=== PATIENT | female | born 1975 | race African-American/Black ===

== ENCOUNTER → 2020-08-30 08:22 | Outpatient (BNVA) | payer MEDICARE, MEDICAID, SELFPAY | PROVIDERS: Visit Provider Obstetrics & Gynecology | DX: N93.9 Abnormal uterine and vaginal bleeding, unspecified (principal) | CPT/HCPCS: 99212 ==

== ENCOUNTER → 2020-09-15 10:34 | Outpatient (BNVA) | payer MEDICARE, MEDICAID, SELFPAY | PROVIDERS: Visit Provider Obstetrics & Gynecology | DX: Z76.89 Persons encountering health services in other specified circumstances (principal) ==

== ENCOUNTER → 2020-11-17 15:39 | Outpatient (BNVA) | payer OTHER, SELFPAY | PROVIDERS: PCP Internal Medicine; Visit Provider Obstetrics & Gynecology | DX: N93.9 Abnormal uterine and vaginal bleeding, unspecified (principal) | CPT/HCPCS: Q3014 ==

== ENCOUNTER 2020-11-18 06:03 | Day surgery (SDC) | payer OTHER, SELFPAY ==
[2020-09-24 14:43] VITALS: BMI 41.6
--- NOTE | 2020-09-29 11:01 | HO.ANESPROP2 ---
HPI - Anesthesia Eval Consult details Narrative: 44yo F for D&C Diagnostic Hysteroscopy with Novasure Ablation PMFSH Past Medical History Medical History Bronchitis Chronic GERD COPD (chronic obstructive pulmonary disease) Herpes simplex antibody positive Hx of kidney disease Family History Family History Father No problems noted. Mother HTN (hypertension) Asthma Diabetes mellitus Brother No problems noted. Brother No problems noted. Son No problems noted. Daughter No problems noted. Daughter No problems noted. Daughter No problems noted. Surgical History Surgical History Hx of section Hx of cholecystectomy Hx of foot surgery Social History Social History Alcohol intake: never Smoking Status: Current every day smoker Tobacco Type: Cigarette Cigarettes Per Day: 6 Years Smoked: 30+ Second Hand Smoke Exposure: No Meds Allergies Allergy/AdvReac Type Severity Reaction Status Date / Time acetaminophen [Tylenol] AdvReac Unknown kidney Verified 09/15/20 10:32 problems Home Medications Medication Instructions Recorded Confirmed Type albuterol sulfate 2.5 mg INHALATION Q6H PRN 08/06/20 09/24/20 History albuterol sulfate 90 mcg/actuation 2 puff INHALATION Q4-6H PRN 08/06/20 09/24/20 History aerosol inhaler metformin 500 mg tablet 500 mg PO BID 08/06/20 09/24/20 History quetiapine 100 mg tablet 100 mg PO DAILY 08/06/20 09/24/20 History quetiapine 300 mg tablet,extended 300 mg PO BEDTIME 08/06/20 09/24/20 History release 24 hr sennosides 8.6 mg tablet 17.2 mg PO BEDTIME PRN 08/06/20 09/24/20 History fluticasone propion-salmeterol 1 puff PO BID 09/24/20 09/24/20 History [Advair Diskus] pantoprazole 40 mg PO DAILY PRN 09/24/20 09/24/20 History Exam Exam Date and Time: September 29, 2020 1101 Height,Weight and Vital Signs: Height 5 ft 6 in Weight 117.027 kg Assessment and Plan Assessment Anesthesia Assessment: Chart Reviewed
[2020-10-29 12:31] VITALS: BMI 41.6
--- NOTE | 2020-11-03 09:38 | P.CONAN_ITS ---
HPI - Anesthesia Eval Consult details Narrative: 44yo F for D&C Hysteroscopy with Novasure ablation Resched to 11/18/20 [facility] Past Medical History Medical History Bronchitis Chronic GERD COPD (chronic obstructive pulmonary disease) Herpes simplex antibody positive Hx of kidney disease Family History Family History Father No problems noted. Mother HTN (hypertension) Asthma Diabetes mellitus Brother No problems noted. Brother No problems noted. Son No problems noted. Daughter No problems noted. Daughter No problems noted. Daughter No problems noted. Surgical History Surgical History Hx of section Hx of cholecystectomy Hx of foot surgery Social History Social History Alcohol intake: never Smoking Status: Current every day smoker Tobacco Type: Cigarette Cigarettes Per Day: 4 Years Smoked: 30+ Second Hand Smoke Exposure: No Meds Allergies Allergy/AdvReac Type Severity Reaction Status Date / Time acetaminophen [Tylenol] AdvReac Unknown kidney Verified 10/29/20 12:31 problems Home Medications Medication Instructions Recorded Confirmed Type quetiapine 100 mg tablet 100 mg PO DAILY 08/06/20 09/24/20 History quetiapine 300 mg tablet,extended 300 mg PO BEDTIME 08/06/20 09/24/20 History release 24 hr sennosides 8.6 mg tablet 17.2 mg PO BEDTIME PRN 08/06/20 09/24/20 History fluticasone propion-salmeterol 1 puff PO BID 09/24/20 09/24/20 History [Advair Diskus] pantoprazole 40 mg PO DAILY PRN 09/24/20 09/24/20 History Exam Exam Date and Time: November 03, 2020 0938 Height,Weight and Vital Signs: Height 5 ft 6 in Weight 117 kg Pertinent Lab Results Pertinent Lab Results: Laboratory Tests 12/26/19 06/29/20 14:15 13:46 WBC 5.4 Hgb 12.9 Hct 40.5 Plt Count 348 Sodium 138 Potassium 5.1 Chloride 106 BUN 8 L Creatinine 0.81 Assessment and Plan Assessment Anesthesia Assessment: Chart Reviewed
[2020-11-10 20:08] VITALS: BMI 40.3
--- NOTE | 2020-11-17 09:18 | P.CONAN_ITS ---
Documented by User: Mariana Childress 11/17/20 09:19 HPI - Anesthesia Eval Consult details Narrative: 44yo F for D&C Hysteroscopy with Novasure ablation PMFSH Past Medical History Medical History Anxiety Bronchitis Chronic GERD COPD (chronic obstructive pulmonary disease) Depression Diabetes type 2, controlled Herpes simplex antibody positive Hx of kidney disease Schizophrenia Family History Family History Father No problems noted. Mother HTN (hypertension) Asthma Diabetes mellitus Brother No problems noted. Brother No problems noted. Son No problems noted. Daughter No problems noted. Daughter No problems noted. Daughter No problems noted. Surgical History Surgical History Hx of section Hx of cholecystectomy Hx of foot surgery Social History Social History Are you a primary childcare provider to a significant other at home: No Do you presently have visiting nurse or other home services: No Alcohol intake: never Smoking Status: Current every day smoker Tobacco Type: Cigarette Cigarettes Per Day: 4 Years Smoked: 30+ Smoked in Last 30 Days: Yes Patient Interested in Nicotine Replacement: No Patient Given Instructions on How to Stop Smoking: No Date Education Initiated: 10/29/20 Second Hand Smoke Exposure: No Use of substances other than those prescribed or required for medical reasons: Yes Substance Use Frequency: Weekly Have you been hit, kicked, punched, or otherwise hurt by someone within the past year? If so, by whom?: No Advance Directives: No Advance Directives Information Provided: No Advance Directives on File: No Recently lost weight without trying: No Meds Allergies Allergy/AdvReac Type Severity Reaction Status Date / Time acetaminophen [Tylenol] AdvReac Unknown kidney Verified 11/10/20 20:15 problems Home Medications Medication Instructions Recorded Confirmed Type quetiapine 100 mg tablet 100 mg PO DAILY 08/06/20 11/10/20 History quetiapine 300 mg tablet,extended 300 mg PO BEDTIME 08/06/20 11/10/20 History release 24 hr sennosides 8.6 mg tablet 17.2 mg PO BEDTIME PRN 08/06/20 11/10/20 History fluticasone propion-salmeterol 1 puff PO BID 09/24/20 11/10/20 History [Advair Diskus] pantoprazole 40 mg PO DAILY PRN 09/24/20 11/10/20 History dextroamphetamine-amphetamine 30 mg PO DAILY 11/10/20 11/10/20 History [Adderall XR] Exam Exam Date and Time: November 17, 2020 0918 Height,Weight and Vital Signs: Height 5 ft 6 in Weight 113.398 kg Assessment and Plan Assessment Anesthesia Assessment: Chart Reviewed Documented by User: Susy Santos 11/18/20 07:22 PMFSH Past Medical History Medical History Anxiety Bronchitis Chronic GERD COPD (chronic obstructive pulmonary disease) Depression Diabetes type 2, controlled Herpes simplex antibody positive Hx of kidney disease Schizophrenia Family History Family History Father No problems noted. Mother HTN (hypertension) Asthma Diabetes mellitus Brother No problems noted. Brother No problems noted. Son No problems noted. Daughter No problems noted. Daughter No problems noted. Daughter No problems noted. Surgical History Surgical History Hx of section Hx of cholecystectomy Hx of foot surgery Social History Social History Are you a primary childcare provider to a significant other at home: No Do you presently have visiting nurse or other home services: No Alcohol intake: never Smoking Status: Current every day smoker Tobacco Type: Cigarette Cigarettes Per Day: 4 Years Smoked: 30+ Smoked in Last 30 Days: Yes Patient Interested in Nicotine Replacement: No Patient Given Instructions on How to Stop Smoking: No Date Education Initiated: 10/29/20 Second Hand Smoke Exposure: No Use of substances other than those prescribed or required for medical reasons: Yes Substance Use Frequency: Weekly Have you been hit, kicked, punched, or otherwise hurt by someone within the past year? If so, by whom?: No Advance Directives: No Advance Directives Information Provided: No Advance Directives on File: No Recently lost weight without trying: No Meds Allergies Allergy/AdvReac Type Severity Reaction Status Date / Time acetaminophen [Tylenol] AdvReac Unknown kidney Verified 11/10/20 20:15 problems Home Medications Medication Instructions Recorded Confirmed Type quetiapine 100 mg tablet 100 mg PO DAILY 08/06/20 11/10/20 History quetiapine 300 mg tablet,extended 300 mg PO BEDTIME 08/06/20 11/10/20 History release 24 hr sennosides 8.6 mg tablet 17.2 mg PO BEDTIME PRN 08/06/20 11/10/20 History fluticasone propion-salmeterol 1 puff PO BID 09/24/20 11/10/20 History [Advair Diskus] pantoprazole 40 mg PO DAILY PRN 09/24/20 11/10/20 History dextroamphetamine-amphetamine 30 mg PO DAILY 11/10/20 11/10/20 History [Adderall XR] Exam Airway Mallampati Class: II TM Dist: >3cm Neck ROM: Full Assessment and Plan Assessment Anesthesia Assessment: Anesthesia Plan Discussed and Chart Reviewed Final Anesthetic Review NPO: Yes ASA Class: III Final Preanesthetic Review: No Changes in Pt Med Stat, Meds/Allgs Chart Reviewed and Consent Obtained/Reviewed Patient Risk: Intermediate Procedure Risk: Low Assessment/Block/Sedation in SS: Assess/Block/Sedation-SS Anesthetic Plan Anesthetic Plan: MAC: Disposition: Standard PACU
[2020-11-18 06:51] VITALS: BP 134/81; PULSE 62; RESP 16; TEMP 37; O2SAT 97
[2020-11-18] MEDS: Lactated Ringers 1,000 ML 100 ML IVCONT (07:00)
[2020-11-18 07:08] LABS: Glucose, Whole Blood 100 mg/dL (60-115)
[2020-11-18 07:17] LABS: HCG Quantitative < 2 mIU/mL
--- NOTE | 2020-11-18 07:22 | MHC.SHP ---
Pre-Procedural Eval Section A The patient is an INPATIENT: No Changes since office visit: No Cold of Flu in the past 2 weeks, No New Medical Problems, No Changes in Medication and No Patient answered all questions The History & Physical has been completed within 30 days and I have reviewed it.: Yes Section B Chief Complaint: Abnormal Uterine Bleeding Allergies: Allergies Allergy/AdvReac Type Severity Reaction Status Date / Time acetaminophen [Tylenol] AdvReac Unknown kidney Verified 11/10/20 20:15 problems Plan I have reviewed the history and physical and performed a pertinent physical examination on my patient. No changes have occurred unless specified.
--- NOTE | 2020-11-18 07:55 | P.CONAN_ITS ---
[facility] Past Medical History Medical History Anxiety Bronchitis Chronic GERD COPD (chronic obstructive pulmonary disease) Depression Diabetes type 2, controlled Herpes simplex antibody positive Hx of kidney disease Schizophrenia Family History Family History Father No problems noted. Mother HTN (hypertension) Asthma Diabetes mellitus Brother No problems noted. Brother No problems noted. Son No problems noted. Daughter No problems noted. Daughter No problems noted. Daughter No problems noted. Surgical History Surgical History Hx of section Hx of cholecystectomy Hx of foot surgery Social History Social History Are you a primary healthcare insurance sales agent to a significant other at home: No Do you presently have visiting nurse or other home services: No Alcohol intake: never Smoking Status: Current every day smoker Tobacco Type: Cigarette Cigarettes Per Day: 4 Years Smoked: 30+ Smoked in Last 30 Days: Yes Patient Interested in Nicotine Replacement: No Patient Given Instructions on How to Stop Smoking: No Date Education Initiated: 10/29/20 Second Hand Smoke Exposure: No Use of substances other than those prescribed or required for medical reasons: Yes Substance Use Frequency: Weekly Have you been hit, kicked, punched, or otherwise hurt by someone within the past year? If so, by whom?: No Advance Directives: No Advance Directives Information Provided: No Advance Directives on File: No Recently lost weight without trying: No Meds Allergies Allergy/AdvReac Type Severity Reaction Status Date / Time acetaminophen [Tylenol] AdvReac Unknown kidney Verified 11/10/20 20:15 problems Home Medications Medication Instructions Recorded Confirmed Type quetiapine 100 mg tablet 100 mg PO DAILY 08/06/20 11/10/20 History quetiapine 300 mg tablet,extended 300 mg PO BEDTIME 08/06/20 11/10/20 History release 24 hr sennosides 8.6 mg tablet 17.2 mg PO BEDTIME PRN 08/06/20 11/10/20 History fluticasone propion-salmeterol 1 puff PO BID 09/24/20 11/10/20 History [Advair Diskus] pantoprazole 40 mg PO DAILY PRN 09/24/20 11/10/20 History dextroamphetamine-amphetamine 30 mg PO DAILY 11/10/20 11/10/20 History [Adderall XR] Exam Exam Date and Time: November 18, 2020 0755 Height,Weight and Vital Signs: Height 5 ft 6 in Weight 113.398 kg Last Vital Signs Temp 98.6 F 11/18/20 06:51 Pulse 62 11/18/20 06:51 Resp 16 11/18/20 06:51 BP 134/81 11/18/20 06:51 Pulse Ox 97 11/18/20 06:51 Pertinent Lab Results Pertinent Lab Results: Laboratory Tests 11/18/20 11/18/20 06:29 07:04 POC Glucose 100 Beta HCG, Quant < 2 Airway Mallampati Class: II TM Dist: >3cm Neck ROM: Full Assessment and Plan Assessment Anesthesia Assessment: Anesthesia Plan Discussed and Chart Reviewed Final Anesthetic Review NPO: Yes ASA Class: III Final Preanesthetic Review: No Changes in Pt Med Stat, Meds/Allgs Chart Reviewed, Consent Obtained/Reviewed and Anes Risks/Benef Reviewed Patient Risk: Intermediate Procedure Risk: Low Assessment/Block/Sedation in SS: Assess/Block/Sedation-SS Anesthetic Plan Anesthetic Plan: MAC: Disposition: Standard PACU
[2020-11-18 08:40] VITALS: BP 156/101; PULSE 80; RESP 20; TEMP 36.6; O2SAT 98
[2020-11-18] MEDS: ondansetron HCL 4 MG/2 ML VIAL IVPUSH (08:42)
[2020-11-18 08:45] VITALS: BP 141/92; PULSE 75; RESP 20; O2SAT 99
[2020-11-18 08:50] VITALS: BP 141/96; PULSE 71; RESP 20; O2SAT 99
[2020-11-18 08:55] VITALS: BP 160/94; PULSE 66; RESP 18; O2SAT 98
[2020-11-18 09:10] VITALS: BP 158/101; PULSE 72; RESP 18; O2SAT 99
--- NOTE | 2020-11-18 09:36 | P.OP_ITS ---
Operative Note Operative Note Date of Service: 11/18/20 Narrative: Ms. Reyes is a 44 year old with abnormal uterine bleeding. She presents today for hysteroscopy d&c for endometrial sampling given her age and obesity after declining EMB in the office. Surgical Risks: The patient was informed of the risks and benefits of a hysteroscopy with dilation and curettage. Risks included but were not limited to bleeding, infection, injury to the vulva, vagina, or cervix, and uterine per foration with possible need for further surgery. The patient expressed understanding of the risks involved, all questions were answered, and the patient consented to the procedure. The patient was taken to the operating room where a time out was confirmed to confirm correct patient and correct procedure. Adequate IV sedation was established. The patient was then positioned on the operating table in the dorsal lithotomy position with her legs supported using stirrups. All pressure points were padded and a warm blanket was placed to maintain control of core body temperature. The patient was then prepped and draped in the usual sterile fashion. A bimanual exam was performed and the uterus was found to be approximately 12 cm size, anteverted. A straight catheter was inserted into the bladder and 200mL of urine was obtained. A bivalve speculum was then inserted into the vagina. The anterior lip of the cervix was visualized and grasped using a single tooth tenaculum. The cervix was adequately dilated using Riddle dilators for the introduction of the hysteroscope. The hysteroscope was introduced under direct visualization using normal saline solution as the distending media. The hysteroscope was advanced to the fundus and the entire uterine cavity was inspected. The cavity was full of what appeared to be polypoid tissue, with a possible polyp or fibroid on the posterior surface of the uterus in the midline initially obstructing view of the fundus and ostia. The myosure device was introduced and advanced and curettage performed of polypoid tissue on the left uterine wall and possible myoma/polyp obstructing visualization of the fundus. The hysteroscope could then be advanced to the fundus, where another likely polyp was noted at the posterior aspect of the left cornua. This was also removed with the myosure. The cavity then appeared grossly normal. The hysteroscope was then removed and a sharp curetting was performed starting at the 12 o?clock position and rotating a total of 360 degrees in order to cover all surfaces. Endometrial tissue was obtained and was sent to pathology. Following the curetting, good hemostasis was noted. The single-tooth tenaculum was removed from the anterior lip of the cervix and hemostasis was also noted at the tenaculum puncture sites. The speculum was then removed from the vagina. At the end of the procedure, all needle, sponge, and instrument counts were noted to be correct x2. The patient was transferred to the recovery room in stable condition.
--- NOTE | 2020-11-18 09:48 | HO.POSTANES ---
Post Anesthesia Evaluation Post Anesthesia Evaluation Vital Signs: Vital Signs Temp Pulse Resp BP Pulse Ox 11/18/20 09:10 98 F 72 18 158/101 H 99 11/18/20 08:55 66 18 160/94 H 98 11/18/20 08:50 71 20 141/96 H 99 11/18/20 08:45 75 20 141/92 H 99 11/18/20 08:40 98 F 80 20 156/101 H 98 11/18/20 06:51 98.6 F 62 16 134/81 97 Anesthesia: Monitored Mental Status: Awake Pain Control: Satisfactory Nausea/Vomiting: None Hydration: Adequate Anesthesia-Related Issues: No Anes. Related Issues (BP elevated throughout SSS. Instructed to f/u with PCP.)
== END 2020-11-18 09:58 | disposition home or self-care (01) ==
LOC: HO.SSS 06:03
PROVIDERS: Visit Provider Obstetrics & Gynecology
PROC: 0UDB8ZX Extraction of Endometrium, Via Natural or Artificial Opening Endoscopic, Diagnostic (ICD-10-PCS; CPT 58558; principal; 2020-11-18 07:30)
DX: N93.9 Abnormal uterine and vaginal bleeding, unspecified (principal); N84.0 Polyp of corpus uteri; J44.9 Chronic obstructive pulmonary disease, unspecified; E66.9 Obesity, unspecified; Z90.49 Acquired absence of other specified parts of digestive tract; F17.210 Nicotine dependence, cigarettes, uncomplicated; Z88.8 Allergy status to other drugs, medicaments and biological substances
CPT/HCPCS: 58558; 36415; 82947; 84702; 88305; J1100; J2250; J2405; J3010

== ENCOUNTER → 2021-01-21 14:07 | Outpatient (BNVA) | payer OTHER, SELFPAY | PROVIDERS: Visit Provider Obstetrics & Gynecology | DX: R10.2 Pelvic and perineal pain (principal); G89.18 Other acute postprocedural pain; N93.9 Abnormal uterine and vaginal bleeding, unspecified | CPT/HCPCS: Q3014 ==

== ENCOUNTER → 2021-04-05 07:23 | Outpatient (BNVA) | payer OTHER, SELFPAY | PROVIDERS: PCP Internal Medicine; Visit Provider Surgery | DX: E66.01 Morbid (severe) obesity due to excess calories (principal); E11.9 Type 2 diabetes mellitus without complications; J44.9 Chronic obstructive pulmonary disease, unspecified; K92.1 Melena; F32.9 Major depressive disorder, single episode, unspecified; R89.4 Abnormal immunological findings in specimens from other organs, systems and tissues | CPT/HCPCS: Q3014 ==

== ENCOUNTER 2021-08-22 12:49 | Outpatient (REF) | payer OTHER, SELFPAY ==
[2021-08-22 13:52] LABS: Hematocrit 38.7 % (37.0-47.0); Hemoglobin 12.6 g/dl (12.0-16.0); Mean Corpuscular HGB Conc 32.6 g/dl (31.0-35.0); Mean Corpuscular Hemoglobin 25.6 pg (27.0-33.0); Mean Corpuscular Volume 78.5 fL (80.0-98.0); Mean Platelet Volume 10.5 fL (9.4-12.3); Platelet Count 474 X10*3/uL (160-400); Red Blood Count 4.93 X10*6/uL (4.20-5.50); Red Cell Distribution Width 16.3 % (11.0-16.0); White Blood Count 5.4 X10*3/uL (4.8-10.8)
[2021-08-22 14:09] LABS: Estimated Average Glucose 120 mg/dL; Hemoglobin A1c % 5.8 %
[2021-08-22 14:30] LABS: Alanine Aminotransferase 26 U/L (0-31); Albumin Level 4.2 g/dL (3.5-5.0); Alkaline Phosphatase 66 U/L (39-117); Anion Gap 16 (12-20); Aspartate Amino Transferase 26 U/L (5-31); Bilirubin Total 0.3 mg/dL (0.0-1.0); Blood Urea Nitrogen 10 mg/dL (9-16); C Reactive Protein 0.25 mg/dL (< or = 0.50); Calcium 9.5 mg/dL (8.4-10.2); Carbon Dioxide 25 mmol/L (22-29); Chloride 104 mmol/L (96-108); Estimated Glomerular Filt Rate > 60; Glucose Random 90 mg/dL (60-115); Potassium 4.5 mmol/L (3.3-5.1); Sodium 140 mmol/L (135-145); Total Protein 7.3 g/dL (6.5-8.0)
== END 2021-08-22 12:50 | disposition home or self-care (01) ==
LOC: HO.HMGCLDS 12:49
PROVIDERS: PCP Internal Medicine; Visit Provider Internal Medicine
DX: E11.9 Type 2 diabetes mellitus without complications (principal); J44.9 Chronic obstructive pulmonary disease, unspecified; E03.9 Hypothyroidism, unspecified
CPT/HCPCS: 36415; 80053; 82550; 83036; 85027; 86140

== ENCOUNTER 2021-08-26 09:52 | Outpatient (REF) | payer OTHER, SELFPAY ==
--- NOTE | ~2021-08-26 | XR_ITS ---
EXAMINATION: XR CHEST CLINICAL INFORMATION: Diabetes without complications. COMPARISON: None TECHNIQUE: 2 views of the chest were obtained. FINDINGS: The lungs are well expanded. There is no focal consolidation, edema, or effusion. No pneumothorax. The cardiomediastinal silhouette is within normal limits. No acute osseous abnormality. XR/XR chest 2V IMPRESSION: Clear lungs.
== END 2021-08-26 09:53 | disposition home or self-care (01) ==
LOC: HO.HMGCX 09:52
PROVIDERS: PCP Internal Medicine; Visit Provider Internal Medicine
DX: E11.9 Type 2 diabetes mellitus without complications (principal); J44.9 Chronic obstructive pulmonary disease, unspecified; E03.9 Hypothyroidism, unspecified
CPT/HCPCS: 71046

== ENCOUNTER 2021-11-02 11:17 | Outpatient (REF) | payer OTHER, SELFPAY ==
--- NOTE | ~2021-11-02 | MM_ITS ---
EXAMINATION: MM SCREENING DIGITAL BREAST TOMOSYNTHESIS, BILATERAL CLINICAL INFORMATION: Screening. Asymptomatic. The lifetime risk of breast cancer based on the Tyrer-Cuzick Model is 11%. COMPARISON: Outside mammography: 05/20/2015 ([facility]). TECHNIQUE: Digital breast tomosynthesis is performed in both the craniocaudal and mediolateral oblique views along with computer-aided detection (CAD). Synthesized 2D images are generated from the tomosynthesis. FINDINGS: There are scattered areas of fibroglandular density (ACR BI-RADS breast composition Category b). There are no significant masses, abnormal calcifications, or other abnormalities. Small circumscribed nodule upper right breast on MLO view approximately 11 cm from nipple is stable from prior outside exam, possibly intramammary node. The bilateral axilla and skin contours are unremarkable. No significant changes from prior outside exam. MM/MM tomosynthesis screening BI IMPRESSION: No mammographic evidence of malignancy. ASSESSMENT: BI-RADS 2: Benign RECOMMENDATION: Routine annual mammography screening. This patient's information was entered into a reminder system with a target due date for their next mammogram.
== END 2021-11-02 11:18 | disposition home or self-care (01) ==
LOC: HO.MAMMO 11:17
PROVIDERS: PCP Internal Medicine; Visit Provider Internal Medicine
DX: Z12.31 Encounter for screening mammogram for malignant neoplasm of breast (principal)
CPT/HCPCS: 77063; 77067

== ENCOUNTER → 2021-11-08 14:05 | Outpatient (BNVA) | payer OTHER, SELFPAY | PROVIDERS: PCP Internal Medicine; Visit Provider Surgery Vascular Surgery | DX: I83.11 Varicose veins of right lower extremity with inflammation (principal) | CPT/HCPCS: 99202 ==

== ENCOUNTER 2021-11-24 06:11 | Outpatient (REF) | payer OTHER, SELFPAY ==
--- NOTE | ~2021-11-24 | XR_ITS ---
EXAMINATION: XR SHOULDER, RIGHT CLINICAL INFORMATION: Right shoulder pain. COMPARISON: None. TECHNIQUE: AP, scapular Y, and axillary views of the right shoulder. FINDINGS: [id number] glenohumeral joint space narrowing with inferior marginal osteophytes. [id number] acromioclavicular marginal osteophytes. No acute fracture or dislocation. No osseous erosion. No abnormal soft tissue calcification. XR/XR shoulder RT min 2V IMPRESSION: [id number] acromioclavicular and glenohumeral osteoarthritis.
== END 2021-11-24 06:12 | disposition home or self-care (01) ==
LOC: HO.HOSX 06:11
PROVIDERS: Visit Provider Physician Assistant
DX: M75.81 Other shoulder lesions, right shoulder (principal)
CPT/HCPCS: 20610; 73030; 99202; J1020; J1100

== ENCOUNTER 2021-11-28 12:58 | Outpatient (REF) | payer OTHER, SELFPAY ==
--- NOTE | ~2021-11-28 | US_ITS ---
EXAMINATION: US LOWER EXTREMITY VENOUS (REFLUX EXAM), BILATERAL CLINICAL INDICATION: This is a 45-year-old female with venous insufficiency and varicose veins. COMPARISON: None. TECHNIQUE: Color flow triplex imaging and compression Doppler was performed to evaluate both the deep and the superficial systems bilaterally. To evaluate the superficial system, the examination was performed in the upright position. Color-flow Doppler ultrasound and compression ultrasound were utilized. In addition, maneuvers were utilized to demonstrate reflux. FINDINGS: 1. DEEP VENOUS ULTRASOUND OF THE RIGHT LOWER EXTREMITY: Common Femoral Vein: Compressible, normal respiratory variation and augmented flow. Femoral vein: Compressible, normal color flow and augmentation. Popliteal Vein: Compressible, normal augmentation. Deep Reflux: There is no evidence of reflux in the deep system in either the common femoral vein or the popliteal vein. There is a 3.7 x 0.9 x 1.7 cm Ansari's cyst. 2. SUPERFICIAL ULTRASOUND WITH DOPPLER OF RIGHT LOWER EXTREMITY: GREAT SAPHENOUS VEIN: Saphenofemoral Junction: 0.9 cm Mid Thigh: 0.5 cm Above Knee: 0.5 cm Below Knee: 0.3 cm Mid Calf: 0.2 cm Ankle: 0.2 cm GSV REFLUX: No evidence of reflux. DUPLICATED GREAT SAPHENOUS VEIN: There is a lateral duplicated great saphenous vein measures 0.4 cm without reflux. SMALL SAPHENOUS VEIN: Proximal: 0.2 cm Distal: 0.2 cm SSV REFLUX: No evidence of reflux. VEIN OF GIACOMINI: None Imaged. PERFORATORS: There is a 0.2 cm proximal thigh and proximal calf, respectively, manager agricultural without reflux. VARICOSITIES: There are 0.3 cm varicose veins in the thigh without reflux. There is a 0.2 cm varicose vein in the mid lateral thigh with the reflux time 1648 ms. 3. DEEP VENOUS ULTRASOUND OF THE LEFT LOWER EXTREMITY: Common Femoral Vein: Compressible, normal respiratory variation and augmented flow. Femoral Vein: Compressible, normal color flow and augmentation. Popliteal Vein: Compressible, normal augmentation. Deep Reflux: There is no evidence of reflux in the deep system in either the common femoral vein or the popliteal vein. There is no evidence of a Ansari's cyst. 4. SUPERFICIAL ULTRASOUND WITH DOPPLER OF LEFT LOWER EXTREMITY: GREAT SAPHENOUS VEIN: Saphenofemoral Junction: 0.8 cm Mid Thigh: 0.5 cm Above Knee: 0.5 cm Below Knee: 0.4 cm Mid Calf: 0.3 cm Ankle: There are 0.2 cm GSV REFLUX: No evidence of reflux. DUPLICATED GREAT SAPHENOUS VEIN: There is a 0.4 cm duplicated lateral great saphenous vein without reflux. SMALL SAPHENOUS VEIN: Proximal: 0.4 cm Distal: 0.5 cm SSV REFLUX: No evidence of reflux. VEIN OF GIACOMINI: None Imaged. PERFORATORS: There is a 0.2 cm distal calf manager agricultural without reflux. VARICOSITIES: There is a 0.3 cm distal calf varicose vein without reflux. Incidental note is made of an abnormal-appearing lymph node in the lateral proximal left thigh measuring 2.4 x 0.8 x 1.6 cm. It does not have the classic fatty hilum. There is no calcification. The vascularity is normal. US/US venous duplex LE BI IMPRESSION: 1. There are bilateral patent great saphenous veins and small saphenous veins without evidence of reflux. 2. There are 0.3 cm varicose veins seen bilaterally without reflux. 3. There is a right Ansari's cyst measuring 3.7 x 0.9 x 1.7 cm. 4. There is an abnormal-appearing lymph node in the proximal left thigh measuring 2.4 x 0.8 x 1.6 cm. The appearance and location appears somewhat suspicious. Further workup is recommended as well as clinical correlation. This lymph node may require percutaneous biopsy.
== END 2021-11-28 12:59 | disposition home or self-care (01) ==
LOC: HO.US 12:58
PROVIDERS: PCP Internal Medicine; Visit Provider Surgery Vascular Surgery
DX: I87.2 Venous insufficiency (chronic) (peripheral) (principal)
CPT/HCPCS: 93970

== ENCOUNTER → 2021-11-29 13:24 | Outpatient (BNVA) | payer OTHER, SELFPAY | PROVIDERS: PCP Internal Medicine; Visit Provider Surgery Vascular Surgery | DX: M79.604 Pain in right leg (principal); M79.605 Pain in left leg | CPT/HCPCS: 99212 ==

== ENCOUNTER 2021-12-15 13:00 | Outpatient (RCR) | payer OTHER, SELFPAY ==
--- NOTE | 2021-12-15 13:52 | MHC.PT.EP ---
[facility] [place] Office [place] Office [place] Office [address] [phone] F: [phone] F: [phone] F: [phone] F: [phone] Physical Therapy Plan of Care Date of Evaluation: Date of Surgery: Diagnosis: RTC tendonitis Assessment: 45 y/o RHD female referred to PT with RTC tendonitis. She reports R shoulder pain for years that has progressively worsened resulting in pain and difficulty with R shoulder abduction, lifting, sleeping on R side, carrying things, and curtain cleaner. Examination shows decreased R shoulder strength (likely limited d/t pain), decreased R shoulder AROM, PROM not tested due to guarding, increased senstivity to touch, and impaired postural awareness. Recommend PT 2x/week for 5 weeks to address impairments, implement HEP, and optimize functional mobility. Frequency and Duration: The patient will be seen 2x/week for 5 weeks Short Term Goals: 3 weeks 1. Compliant with HEP [facility] Goals: 5 weeks 1. I with HEP and self management of sx 2. Improve R shoulder AROM to 90* flexion and abduction to faciliate reaching overhead Treatment Plan: Modalities to reduce pain, spasms and effusion. Manual therapy to restore motion and function. Therapeutic exercise to improve strength and flexibility. Neuromuscular re-education for posture and balance. Therapeutic activities to return to functional activities of daily living. Electronically signed by: Dez Seo PT Please sign and return to therapist. Thank you for your referral.
--- NOTE | 2021-12-27 11:54 | MHC.PT.DC ---
[facility] [place] Office [place] Office [place] Office [address] Milind Brumfield [address] [phone] F: [phone] F: [phone] F: [phone] F: [phone] Physical Therapy Discharge Report Diagnosis: RTC tendonitis Date of Surgery: Date of Evaluation: 12/15/21 Date of Discharge: 12/27/21 Treatments to Date: 1 Cancellations to Date: 3 No Shows to Date: 0 Discharge Status: Visit Non-compliance Discharge Summary: Pt called to cancel all appointments due to full schedule and unable to attend. She is d/c at this time secondary to scheduling policy and pt request. Electronically signed by: Lillie Seo PT Please sign and return to therapist. Thank you for your referral.
== END 2021-12-27 11:54 | disposition home or self-care (01) ==
LOC: HO.PT 13:00
PROVIDERS: PCP Internal Medicine; Visit Provider Physician Assistant
DX: M75.80 Other shoulder lesions, unspecified shoulder (principal)
CPT/HCPCS: 97110; 97161

== ENCOUNTER → 2022-01-02 09:50 | Outpatient (BNVA) | payer OTHER, SELFPAY | PROVIDERS: PCP Internal Medicine; Visit Provider Nurse Practitioner Family | DX: M79.604 Pain in right leg (principal); M79.605 Pain in left leg; M47.816 Spondylosis without myelopathy or radiculopathy, lumbar region; I89.0 Lymphedema, not elsewhere classified; E66.01 Morbid (severe) obesity due to excess calories; E11.9 Type 2 diabetes mellitus without complications; Z68.41 Body mass index [BMI] 40.0-44.9, adult | CPT/HCPCS: 99202 ==

== ENCOUNTER 2022-01-23 09:43 | Outpatient (RCR) | payer OTHER, SELFPAY ==
--- NOTE | 2022-02-21 08:59 | MHC.OT.OLE ---
[address] [phone] F: [phone] Occupational Therapy Lymphedema Evaluation Diagnosis: Bilateral LE lymphedema Date of Onset: 11/18/21 Attending Provider: Georgiana Prado Prescribed Treatment: Ludy and treat MD Follow Up Appointment: History of Current Condition: Pt reports a worsening of leg edema and pain since undergoing a hysteroscopy and d+c on 11/18/21 due to abnormal uterine bleeding She reports she received compression pantyhose 2 mo ago and wore them for one day. She reportedly has been wearing compression knee highs from [employer] Significant Medical History: ADHD Amenorrhea Anxiety Bronchitis Callus of foot Chronic GERD COPD (chronic obstructive pulmonary disease) Depression Diabetes type 2, controlled Fibromyalgia Herpes simplex antibody positive Hx of kidney disease Hypothyroidism Insomnia Morbid obesity Obesity Schizophrenia (~08/22/21) Shoulder pain, right Venous insufficiency of both lower extremities Precautions/Contraindications: Cellulitis Patient Goals: Improve the pain and swelling to be able to walk better Hand Dominance: Right Observations: Outcome Measures: Prior Level of Function and Occupation Living Situation: Lives alone Family and/or Social Report: Boyfriend , family, TACTICAL DEBRIEFER services 29 hrs a week for days, 14 hrs wk at night Self-Senior Living Support: Assist with ADL and homemaking Employment Status: NA Leisure Activities/Hobbies: Current Level of Function and Occupation Self-Care and Home Care: Inc difficulty with daily activities due to inc pain standing and walking Severe difficulty, inc effort to rima , doff socks and pants Pt avoiding shoes due to poor fit. wearing sandles Employment Status: Leisure Activites/Hobbies: Driving: Sleeping: Vision: Balance: Pain Assessment Pain Score: 10 Pain Scale Used: Numeric (0 - 10) Pain Location and Description: 2-10 Right foot and leg > left Aggravating Factors: Alleviating Factors: Skin and Soft Tissue Assessment Skin and Soft Tissue: Swelling Comments: See edema form. B/l LE lymphedema. Non pitting. Painful to light touch on the right. Tender to light touch on the left. Skin color and temp WNL Areas of hyperkeritosis b/l heels , ankles and toe B/l varicose veins B/l knees with keloid scars.. (due to falls) Nerve assessment Ulnar Nerve: Median Nerve: Radial Nerve: Comments: Sensory Assessment Temperature: Light Touch: Proprioception: Vibration: Comments: Edema Assessment Upper Extremity: Lower Extremity: Right Impaired Left Impaired Comments: See edema form. RLE 76 cm > LLE Dexterity Assessment Dexterity: WNL Comments: Special Tests Comments: AROM (PROM) Strength Lower Extremity Hip Flexion: Knee Flexion: ~85 deg Knee Extension: Ankle Dorsiflexion: ~5 deg Ankle Plantarflexion: Ankle Eversion: ~0 Ankle Inversion: ~5 deg Comments: Pt resting in ankle inversion Cervical Flexion: Extension: Lateral Flexion: Rotation: Comments: WFL Shoulder Flexion: WFL Extension: Abduction: Internal Rotation: External Rotation: Comments: C/o pain and limitation due to arthritis. not assessed Flexion: Extension: Abduction: Internal Rotation: External Rotation: Comments: Elbow Flexion: Extension: Forearm Pronation: Forearm Supination: Comments: Flexion: Extension: Forearm Pronation: Forearm Supination: Comments: Wrist Flexion: Extension: Ulnar Deviation: Radial Deviation: Comments: Flexion: Extension: Ulnar Deviation: Radial Deviation: Comments: Thumb Thumb CMC Flexion: Thumb MCP Flexion: Thumb IP Flexion: Radial Abduction: Palmar Abduction: Opposition: Comments: Digits Index MCP: PIP: DIP: Long MCP: PIP: DIP: Ring MCP: PIP: DIP: Small MCP: PIP: DIP: Comments: Gross Grasp: Lateral Pinch: Two-Point Pinch: Three-Jaw Jose: Comments: WFL Patient Education Primary Language: Upper Sorbian Application Manager Required: No Current Knowledge: Minimal, needs reinforcement Teaching Method: Handouts Education Needs Identified on Evaluation: ADL's Disease Information Exercise How did patient/family demonstrate learning? Needs reinforcement Barriers to Learning: Readiness for Learning: Accepting Who was educated? Patient Comments: Ho self negligence with health. Plan of Care Assessment: Pt is a 46 yo female with worsening bilateral lower extremity lymphedema due to obesity, venous insufficiency, varicose veins and poor compliance with prescribed compression pantyhose. She has severe difficulty with lower body ADL due to body habitus and complaint of pain. She is unable to provide proper skin care to lower legs and feet and do lower body dressing without maximal effort due to body habitus. She will require consistant assistance from her TACTICAL DEBRIEFER for successful self management. She reports she is motivated to make changes due to LE pain is limiting her ability to walk. She is agreeable to resuming use of her compression pantyhose and attending OT for lymphedema treatment with the assist of her TACTICAL DEBRIEFER ST[facility] Duration: 2 wks Short Term Goals: Pt and her TACTICAL DEBRIEFER will understand lymphedema precautions to decrease the risk of infection and exascerbation of the lymphedema Pt will develop a tolerance for wearing a velcro closure compression wrap or her compression pantyhose Pt will experience dec right leg edema to improve tissue health and dec risk of infection Pt will preform HEP with minimal assistance to help improve lymphatic flow and venous return LTG Duration: 4 wks Retirement Goals: Pt and her TACTICAL DEBRIEFER will be indep with a compression system for continued volume reduction and prevent re-accumulation of edema fluid Pt juan demonstrate increased mobility to improve safe transfer ie in and out Treatment with achieve maximum lymphedema reduction to enabel functional improvements such as fitting into standard size shoes , improve balance and reduce risk of falling. Pt and her TACTICAL DEBRIEFER will be independent with HEP and lymphedema management to help prevent edema relapse and reduce risk of infection Frequency and Duration: The patient will be seen 3x wk x 4 wks Treatment Plan: Treatment Plan Comments: Lymphedema Treatment Plan: Exercise: Stretching, strengthening, manual therapy Family/Caregiver Training Manual Lymphatic Drainage Referral for compression garment and instructions for donning/doffing Self Care Training: bandaging, skin care, self massage Lymphedema Treatment Plan Comments: Probable using a velcro closure compression wrap for best outcome ,depending on pt and her TACTICAL DEBRIEFER level of participation Electronically Signed By: Saritha Armstrong OT CHT CLT Reviewed/agree with student documentation: N/A Therapist: Please sign and return to therapist, thank you for your referral.
--- NOTE | 2022-02-21 09:03 | MHC.OT.DC ---
[address] [phone] F: [phone] Occupational Therapy Discharge Note Provider: Georgiana Prado Diagnosis: Bilateral LE lymphedema Date of Surgery: Date of Evaluation: 01/23/22 Date of Discharge: 02/21/22 Treatments to Date: 1 Cancellations to Date: No Shows to Date: Discharge Status: Discharge Summary: See lymphedema eval for details. Pt has not scheduled any appointments. Electronically Signed By: Saritha Armstrong OT CHT CLT Reviewed/agree with student documentation: N/A Therapist: Please Sign and return to therapist, thank you for your referral.
== END 2022-02-21 09:04 | disposition home or self-care (01) ==
LOC: HO.OT 09:43
PROVIDERS: PCP Internal Medicine; Visit Provider Nurse Practitioner Family
DX: I89.0 Lymphedema, not elsewhere classified (principal)

== ENCOUNTER 2023-03-05 14:16 | Outpatient (REF) | payer OTHER, SELFPAY ==
[2023-03-05 16:39] LABS: MANUAL DIFF FLAG NO
[2023-03-05 16:45] LABS: Basophils Percent Auto 0.4 % (0-2); Eosinophils Absolute Auto 0.2 X10*3/uL (0.0-0.4); Eosinophils Percent Auto 2.6 % (0-4); Hematocrit 46.6 % (37.0-47.0); Hemoglobin 15.3 g/dl (12.0-16.0); Imm Gran Abs Auto 0.01 X10*3/uL (0.00-0.03); Imm Gran Pct Auto 0.1 % (0.0-0.4); Lymphocytes Absolute Auto 1.7 X10*3/uL (1.2-4.9); Lymphocytes Percent Auto 24.1 % (20-40); Mean Corpuscular HGB Conc 32.8 g/dl (31.0-35.0); Mean Corpuscular Hemoglobin 26.6 pg (27.0-33.0); Mean Platelet Volume 9.8 fL (9.4-12.3); Monocytes Absolute Auto 0.9 X10*3/uL (0.1-1.2); Monocytes Percent Auto 13.7 % (2-11); Neutrophils Absolute Auto 4.1 x10*3/uL (2.0-8.3); Neutrophils Percent Auto 59.1 % (45-73); Platelet Count 639 X10*3/uL (160-400); Red Blood Count 5.75 X10*6/uL (4.20-5.50); Red Cell Distribution Width 15.5 % (11.0-16.0); White Blood Count 6.9 X10*3/uL (4.8-10.8)
[2023-03-05 16:51] LABS: Estimated Average Glucose 111 mg/dL; Hemoglobin A1C 152.1356 umol/L; Hemoglobin A1c % 5.5 %
[2023-03-05 17:10] LABS: Alanine Aminotransferase 12 U/L (0-31); Albumin Level 4.1 g/dL (3.5-5.0); Alkaline Phosphatase 57 U/L (39-117); Anion Gap 12 (12-20); Aspartate Amino Transferase 17 U/L (5-31); Bilirubin Total 0.5 mg/dL (0.0-1.0); Blood Urea Nitrogen 14 mg/dL (9-16); Calcium 9.5 mg/dL (8.4-10.2); Carbon Dioxide 26 mmol/L (22-29); Chloride 107 mmol/L (96-108); Cholesterol 153 mg/dL; Estimated Glomerular Filt Rate > 60; Glucose Fasting 100 mg/dL (60-99); HDL Cholesterol 48 mg/dL; LDL Cholesterol Calculated 90 mg/dl; Potassium 4.6 mmol/L (3.3-5.1); Sodium 140 mmol/L (135-145); Total Protein 7.2 g/dL (6.5-8.0); Triglycerides 78 mg/dL
[2023-03-05 17:23] LABS: B Type Natriuretic Peptide 19 pg/mL (<100); TSH reflex Free T4 1.52 uIU/mL (0.32-4.0)
== END 2023-03-05 14:17 | disposition home or self-care (01) ==
LOC: HO.HMGCLDS 14:16
PROVIDERS: PCP Internal Medicine; Visit Provider Internal Medicine
DX: E03.9 Hypothyroidism, unspecified (principal); J44.9 Chronic obstructive pulmonary disease, unspecified; E11.9 Type 2 diabetes mellitus without complications
CPT/HCPCS: 36415; 80053; 80061; 83036; 83880; 84443; 85025

== ENCOUNTER 2023-03-27 10:35 | Outpatient (REF) | payer OTHER, SELFPAY ==
--- NOTE | ~2023-03-27 | XR_ITS ---
EXAMINATION: Lumbar spine and sacroiliac joint x-rays CLINICAL INFORMATION: Spondylosis without myelopathy or radiculopathy COMPARISON: None. TECHNIQUE: 6 views of the lumbar spine including bilateral oblique and flexion and extension views. 3 views of the sacroiliac joints. FINDINGS: Lumbar sacral spine: Bone alignment is normal. No fracture or dislocation. No instability on flexion-extension views. Mild degenerative spondylosis at L3-L4. Mild disc space narrowing at L5-S1. Mild lower lumbar spine facet arthritis. No pars defect. Sacroiliac joints: The sacroiliac joints are normal-appearing. No evidence of proliferative or erosive arthritis. Mild degenerative changes at the hip joints. XR/XR lumbar spine 6V w bending IMPRESSION: Mild degenerative changes.
--- NOTE | ~2023-03-27 | XR_ITS ---
EXAMINATION: Lumbar spine and sacroiliac joint x-rays CLINICAL INFORMATION: Spondylosis without myelopathy or radiculopathy COMPARISON: None. TECHNIQUE: 6 views of the lumbar spine including bilateral oblique and flexion and extension views. 3 views of the sacroiliac joints. FINDINGS: Lumbar sacral spine: Bone alignment is normal. No fracture or dislocation. No instability on flexion-extension views. Mild degenerative spondylosis at L3-L4. Mild disc space narrowing at L5-S1. Mild lower lumbar spine facet arthritis. No pars defect. Sacroiliac joints: The sacroiliac joints are normal-appearing. No evidence of proliferative or erosive arthritis. Mild degenerative changes at the hip joints. XR/XR sacroiliac joint min 3V IMPRESSION: Mild degenerative changes.
== END 2023-03-27 10:36 | disposition home or self-care (01) ==
LOC: HO.XRAY 10:35
PROVIDERS: PCP Internal Medicine; Visit Provider Nurse Practitioner Family
DX: M47.816 Spondylosis without myelopathy or radiculopathy, lumbar region (principal); M79.604 Pain in right leg; M79.605 Pain in left leg; I89.0 Lymphedema, not elsewhere classified; E66.01 Morbid (severe) obesity due to excess calories; E11.9 Type 2 diabetes mellitus without complications; R29.898 Other symptoms and signs involving the musculoskeletal system; M79.7 Fibromyalgia; R26.89 Other abnormalities of gait and mobility; R29.6 Repeated falls
CPT/HCPCS: 72114; 72202; 99212

== ENCOUNTER → 2023-04-30 13:50 | Outpatient (BNVA) | payer OTHER, SELFPAY | PROVIDERS: PCP Internal Medicine; Visit Provider Nurse Practitioner Family ==

== ENCOUNTER → 2023-04-30 14:07 | Outpatient (AMB) | payer OTHER, SELFPAY ==
--- NOTE | 2023-04-30 13:51 | MHC.OFFVIS ---
Intake Intake Visit Reasons: Follow Up/X-Ray Results Allergies ibuprofen Allergy (Severe, Verified 04/30/23 13:51) Swelling acetaminophen [Tylenol] Adverse Reaction (Unknown, Verified 04/30/23 13:51) kidney problems Medication List - Last Reconciled 04/30/23 by Arianna Govea RN albuterol sulfate 2.5 mg (3 mL) inhalation Q6H PRN 30 days albuterol sulfate 90 mcg/actuation 2 puffs inhalation Q4-6H PRN apixaban (Eliquis) 5 mg PO BID atorvastatin 80 mg PO DAILY blood sugar diagnostic (FreeStyle Lite Strips) test blood sugar once a day blood-glucose meter (FreeStyle Lite Meter kit) As directed to test blood sugars comp.stocking,thigh,long,x-lrg 20-30mmHg pressure dextroamphetamine-amphetamine 30 mg ER (Adderall XR) 30 mg PO DAILY fluticasone propion-salmeterol 100-50 mcg/dose (Advair Diskus) 1 inh PO BID furosemide 40 mg PO DAILY 30 days heating pads As directed ketoconazole 2% 1 appl topical DAILY lancets (Safety Lancets) test blood sugar once a day lancets (Accu-Chek Softclix Lancets) test blood sugar once a day melatonin 5 mg PO BEDTIME metformin 500 mg PO BID methylphenidate HCl ER 36 mg PO DAILY nicotine (polacrilex) mg PO pantoprazole 40 mg (2 x 20 mg) PO DAILY pregabalin 150 mg PO BID 30 days quetiapine 100 mg PO DAILY quetiapine ER 300 mg PO BEDTIME sennosides 17.2 mg (2 x 8.6 mg) PO BEDTIME PRN trazodone 50 mg PO BEDTIME valacyclovir 500 mg PO DAILY [waist high compression stockings As directed 20-30mm] HPI HPI Comments History of Present Illness Details Patient presents today via telehealth encounter to discuss recent lumbar spine and sacroiliac joint xray imaging. PRIOR: Patient presents today for follow up to assess response to Physical therapy. Unfortunately, patient reports she has not started physical therapy due to increasing pain in her bilateral lower extremities with increasing lymphedema. She has been referred to Lymphedema Clinic but has not been seen for this yet. Patient arrived today via wheelchair. She also reports recent visit to [facility] on 03/18/23 with discharge to Short term rehab. Patient emphasizes she cannot tolerate walking, standing and every movement is uncomfortable to her due to significant pain and swelling in her legs and weakness. Reports frequent falls due to weakness in both legs. Patient reports that gabapentin on its own is not helpful and that she has effectively responded to oxycodone at [facility]. I have informed patient that our office does not offer opioid prescribing at this time. Patient is willing to start formal home PT and was reminded to complete lumbosacral imaging. Denies any fever, weight loss, bladder or bowel incontinence or saddle anesthesia. PRIOR: This is a very pleasant 46 years old female presenting for her initial encounter with bilateral leg pain that started since last year. Patient was recently seen by our Vascular Services by Dr. Price and was told studies were negative for any significant vascular issues and negative venous testing except varicose veins. Patient reports bilateral leg pain, with right leg worse then left. She also reports axial back pain with occasional radiation to her bilateral thighs posteriorly. Patient presents today with significant lymphedema and peripheral edema in the setting of morbid obesity. She is wearing compression stockings and reports she has significant bruising in her lower extremities. Patient has been taking gabapentin prescribed as 600 mg TID, but reports she was taking up to 4 pills at the time due to significant pain. She is allergic to Ibuprofen and Tylenol. Denies any fever, abdominal or groin pain, dizziness, malaise, weight loss, bladder/bowel dysfunction or saddle anesthesia. She reports intermittent weakness and use cane with ambulation . Patient was seen by [facility]. Angel and was offered bariatric surgery but had to loose 10% of her body weight. At the time of that visit on 04/05/21 patient's weight was 261 lbs. Today's weight is 287 lb which is a 10% gain from last summer. Past medical history is noted for diabetes, current everyday smoker and extensive mental health history. Patient reports she was not ready for surgery a year ago and was not able to purchase [employer] weight scale then and now due to financial difficulties. She is engaged, and highly motivated to loose weight to be able to walk down the aisle without significant bilateral leg pain and cane which she understands is also attributed to her morbid obesity. Patient is asking me to refer her back to Weight Management Program. She is also interested to start formal PT for her back and bilateral leg pain. [facility] Medical History ADHD Amenorrhea Anxiety Bronchitis Callus of foot Chronic GERD COPD (chronic obstructive pulmonary disease) Depression Diabetes type 2, controlled Fibromyalgia Herpes simplex antibody positive Hx of kidney disease Hypothyroidism Insomnia Morbid obesity Obesity Schizophrenia (~08/22/21) Shoulder pain, right Venous insufficiency of both lower extremities Surgical History Hx of section Hx of cholecystectomy Hx of foot surgery Family History Father Substance use disorder Mother HTN (hypertension) Asthma Diabetes mellitus Substance use disorder Brother No problems noted. Brother Substance use disorder Son No problems noted. Daughter No problems noted. Daughter No problems noted. Daughter No problems noted. Social History Housing: Apartment Are you a primary child care centre director to a significant other at home: No Do you presently have visiting nurse or other home services: No Alcohol intake: never Patient Tobacco Use Status: Current someday Tobacco user Cigarettes Per Day: 4 Years Smoked: 30+ e-Cigarette/Vaping Use: Never Used Second Hand Smoke Exposure: No Substance Use Type: Marijuana Current occupational status: disabled Current occupation: Rt handed Cognitive needs: No Hearing needs: No Vision needs: Yes Review of Systems Const All systems reviewed & are unremarkable except as noted in HPI and below ENT Reports Normal hearing present Neuro Reports Normal hearing present and Denies confusion Psych Denies confusion Physical Exam Const General: cooperative, alert and awake; No confusion Orientation/consciousness: patient oriented x3 and No confusion Resp Effort & Inspection: able to speak in complete sentences, no audible wheezes and no cough Neuro General: patient oriented x3 and No confusion Cranial nerves: Yes Normal hearing present Cognition (Neuro): normal cognition Psych Mental Status: mental status grossly normal Speech and movement: Clear speech present Affect: normal affect Attitude: cooperative Thought process: Normal thought process present Thought content: Normal thought content present and No Depressive thoughts present Insight: Good insight present (Psych) Judgement: Good judgement present (Psych) Results Reviewed Results Reviewed: Lumbar spine and sacroiliac joint x-rays 06/06/23 CLINICAL INFORMATION: Spondylosis without myelopathy or radiculopathy FINDINGS: Lumbar sacral spine: Bone alignment is normal. No fracture or dislocation. No instability on flexion-extension views. Mild degenerative spondylosis at L3-L4. Mild disc space narrowing at L5-S1. Mild lower lumbar spine facet arthritis. No pars defect. Sacroiliac joints: The sacroiliac joints are normal-appearing. No evidence of proliferative or erosive arthritis. Mild degenerative changes at the hip joints. IMPRESSION: Mild degenerative changes. Assessment & Plan Assessment & Plan (1) Lumbar spondylosis: Code(s): M47.816 - Spondylosis without myelopathy or radiculopathy, lumbar region (2) Fibromyalgia: Code(s): M79.7 - Fibromyalgia (3) Leg weakness, bilateral: Code(s): R29.898 - Other symptoms and signs involving the musculoskeletal system (4) Morbid obesity: Code(s): E66.01 - Morbid (severe) obesity due to excess calories Plan 1. Patient reports no pain improvement with Lyrica and asking to switch back to gabapentin. Denies any side effects with Lyrica and not interested in dose up titration. Script provided for gabapentin as previously taken 600 mg TID. 2. Lumbar spine and SIJ xray results were reviewed with patient today and are noted above. 3. Schedule for Bilateral Intra-articular hip steroid injections with local and fluoroscopy for bilateral hip pain with weight bearing, changing positions or movements with getting out of bed or shower. Ativan 0.5-1 mg PO prn prior to procedure. All questions were answered and the patient is in agreement with the treatment plan. Follow up after injections and sooner if needed. Anticoagulation: Patient on anticoagulation (Eliquis) and instructions given on when to pause with prescribing physician permission. Justification for interventional therapy: ? Patient with average pain > 6/10 ? Patient has exhausted conservative therapy, including gabapentin, heating pads, home PT The risks, consequences, alternatives, and benefits of various treatment options were discussed with the patient in great detail, including conservative management, injections and procedures. Patient was informed of hyperglycemic effects of steroids. Most recent A1C=5.5. I hereby testify that I spent 12 minutes in conversation with this patient as well as with planning and coordinating care for this patient and organizing this note. Medications: Changed From gabapentin 600 mg PO TID 90 tabs 1RF M47.816 - Spondylosis without myelopathy or radiculopathy, lumbar region, M79.7 - Fibromyalgia To gabapentin 600 mg PO TID 30 days 90 tabs 3RF pain M47.816 - Spondylosis without myelopathy or radiculopathy, lumbar region, M79.7 - Fibromyalgia Discontinued pregabalin Discontinued Reason: Patient Completed Course 150 mg PO BID 30 days 60 caps 1RF pain M79.604 - Pain in right leg, M79.605 - Pain in left leg, M79.7 - Fibromyalgia Telehealth Telehealth Location of provider rendering services: practice address Location of patient: address on file Patient Identification confirmed using: Name, : Yes Telehealth method: voice only Patient verbally consented to treatment: Yes Patient verbally consented to billing insurance company: Yes Patient informed of any privacy concerns related to visit: Yes Minutes spent on Phone/Video with Pt.: 12 Coding Level of Care Code Tele Est Pt Level 4 (68830) Diagnoses Lumbar spondylosis M47.816 Fibromyalgia M79.7 Leg weakness, bilateral R29.898 Morbid obesity E66.01
== END | disposition home or self-care (01) ==
LOC: HO.PMC 13:50
PROVIDERS: PCP Internal Medicine; Visit Provider Nurse Practitioner Family
DX: M47.816 Spondylosis without myelopathy or radiculopathy, lumbar region (principal); M79.7 Fibromyalgia; R29.898 Other symptoms and signs involving the musculoskeletal system; E66.01 Morbid (severe) obesity due to excess calories; M16.0 Bilateral primary osteoarthritis of hip; M25.551 Pain in right hip; M25.552 Pain in left hip
CPT/HCPCS: 99442

== ENCOUNTER 2023-06-12 06:08 | Outpatient (REF) | payer OTHER, SELFPAY ==
--- NOTE | ~2023-06-12 | FL_ITS ---
EXAMINATION: XR FLUOROSCOPY WITH IMAGES CLINICAL INFORMATION: Bilateral primary osteoarthritis of hip. Patient stated she only wanted left injection done. COMPARISON: None available. TECHNIQUE: Fluoroscopy Supervised By: Dr. Jamal Garzon. Fluoroscopy Time: 0.1 minute. Cumulative Dose: 10.1 mGy. DAP: 0.176 Gycm2. Images: 1. FINDINGS: Images demonstrate needle placement and contrast injection of the left hip joint FL/FL guidance in treatment room IMPRESSION: Fluoroscopy guidance for pain management
== END 2023-06-12 06:09 | disposition home or self-care (01) ==
LOC: CF 06:08
PROVIDERS: Visit Provider Anesthesiology
DX: M16.0 Bilateral primary osteoarthritis of hip (principal); M47.816 Spondylosis without myelopathy or radiculopathy, lumbar region; M79.7 Fibromyalgia; R29.898 Other symptoms and signs involving the musculoskeletal system; E66.01 Morbid (severe) obesity due to excess calories
CPT/HCPCS: 20610; 77002; J3301

== ENCOUNTER 2023-06-12 15:40 | Emergency (ER) | payer OTHER, SELFPAY ==
--- NOTE | 2023-06-12 15:51 | ED.GENADULT ---
HPI - General Adult General Stated complaint: R HIP PAIN UNAMBULATORY Time Seen by Provider: 06/12/23 15:50 Source: patient Mode of arrival: EMS Limitations: no limitations History of Present Illness HPI narrative: Patient comes to the emergency room via ambulance for chronic pain. Patient states that she called 911 thinking that EMS would take her to her scheduled pain clinic appointment. However, EMS brought her to the emergency room. Patient has an appointment pending. The pain clinic is aware the patient is in the emergency room and they are waiting for her. Patient has no new complaints. Patient known to have arthritis in the hip and is due for her visit right now. Related Data Home Medications Medication Instructions Recorded Confirmed quetiapine 100 mg tablet 100 mg PO DAILY 08/06/20 04/30/23 quetiapine 300 mg tablet,extended 300 mg PO BEDTIME 08/06/20 04/30/23 release 24 hr dextroamphetamine-amphetamine ER 30 mg PO DAILY 11/10/20 04/30/23 30 mg 24hr capsule,extend release (Adderall XR) trazodone 50 mg tablet 50 mg PO BEDTIME 03/30/21 04/30/23 nicotine (polacrilex) 2 mg gum mg PO 06/15/22 04/30/23 melatonin 5 mg tablet 5 mg PO BEDTIME 03/27/23 04/30/23 methylphenidate HCl 36 mg 36 mg PO DAILY 03/27/23 04/30/23 tablet,extended release 24 hr Previous Rx's Medication Instructions Recorded heating pads #1 ea 10/01/20 albuterol sulfate 2.5 mg/3 mL 2.5 mg (3 mL) inhalation Q6H PRN 02/21/21 (0.083 %) solution for nebulization Wheezing 30 days #15 mL valacyclovir 500 mg tablet 500 mg PO DAILY #90 tabs 09/08/21 comp.stocking,thigh,long,x-lrg #12 ea 11/23/21 waist high compression stockings #2 ea 12/08/21 blood-glucose meter (FreeStyle #1 ea 05/02/22 Lite Meter kit) lancets 28 gauge (Safety Lancets) #100 ea 06/01/22 blood sugar diagnostic (FreeStyle #100 ea 06/15/22 Lite Strips) fluticasone 100 mcg-salmeterol 50 1 inh PO BID #60 ea 10/04/22 mcg/dose blistr powdr for inhalation (Advair Diskus) furosemide 40 mg tablet 40 mg PO DAILY lymphedema 30 days 10/04/22 #30 tabs apixaban 5 mg tablet (Eliquis) 5 mg PO BID #180 tabs 02/26/23 atorvastatin 80 mg tablet 80 mg PO DAILY #90 tabs 02/26/23 ketoconazole 2 % topical cream 1 appl topical DAILY #60 grams 02/26/23 lancets (Accu-Chek Softclix #100 ea 02/26/23 Lancets) pantoprazole 20 mg tablet,delayed 40 mg PO DAILY #180 tabs 02/26/23 release sennosides 8.6 mg tablet 17.2 mg PO BEDTIME PRN 02/26/23 Constipation #180 tabs albuterol sulfate 90 mcg/actuation 2 puff inhalation Q4-6H PRN 03/05/23 aerosol inhaler Wheezing #8.5 grams metformin 500 mg tablet 500 mg PO BID #180 tabs 04/09/23 gabapentin 600 mg tablet 600 mg PO TID pain 30 days #90 tabs 04/30/23 disposable bed pad #60 ea 05/23/23 Allergies Allergy/AdvReac Type Severity Reaction Status Date / Time ibuprofen Allergy Severe Swelling Verified 04/30/23 13:51 acetaminophen [Tylenol] AdvReac Unknown kidney Verified 04/30/23 13:51 problems Review of Systems Review of Systems: Constitutional : No Weight loss, No Fever, No Chills, No Night Sweats, No Fatigue, No Malaise ENT/Mouth : No Hearing loss, No Ear Pain, No Nasal Congestion, No Sinus Pain, No Hoarseness, No sore throat, No Rhinorrhea, No Swallowing Difficulty Eyes: No Eye Pain, No Swelling, No Redness, No Foreign Body, No Discharge, No Vision Changes Cardiovascular : No Chest Pain, No SOB, No Dyspnea on Exertion, No Orthopnea, No Edema, No Palpitations Respiratory : No Cough, No Sputum, No Wheezing, No Smoke Exposure, No Dyspnea Gastrointestinal : No Nausea, No Vomiting, No Diarrhea, No Constipation, No abdominal Pain, No Hematochezia, No Melena Genitourinary : no irregular bleeding, No Dysuria, No Urinary Frequency, No Hematuria, No Urinary Incontinence, No Urgency, No Flank Pain, No Urinary Flow Changes, No Hesitancy Musculoskeletal : Complaining of chronic right hip pain, No Myalgias, No Joint Swelling Skin : No Skin Lesions, No rash Neuro : No Weakness, No Numbness, No Paresthesias, No Loss of Consciousness, No Dizziness, No Headache Psych : No Anxiety/Panic, No Depression, No SI/HI/AH/VH, No Social Issues, Heme/Lymph: No Bruising, No Bleeding,No Lymphadenopathy Endocrine : No Polyuria, No Polydipsia, No Temperature Intolerance [facility] Past Medical History Medical History ADHD Amenorrhea Anxiety Bronchitis Callus of foot Chronic GERD COPD (chronic obstructive pulmonary disease) Depression Diabetes type 2, controlled Fibromyalgia Herpes simplex antibody positive Hx of kidney disease Hypothyroidism Insomnia Morbid obesity Obesity Schizophrenia (~08/22/21) Shoulder pain, right Venous insufficiency of both lower extremities Surgical History Hx of section Hx of cholecystectomy Hx of foot surgery Family History Family History Father Substance use disorder Mother HTN (hypertension) Asthma Diabetes mellitus Substance use disorder Brother No problems noted. Brother Substance use disorder Son No problems noted. Daughter No problems noted. Daughter No problems noted. Daughter No problems noted. Social History Social History Housing: Apartment Are you a primary attending ambulatory care to a significant other at home: No Do you presently have visiting nurse or other home services: No Alcohol intake: never Patient Tobacco Use Status: Current someday Tobacco user Cigarettes Per Day: 4 Years Smoked: 30+ e-Cigarette/Vaping Use: Never Used Second Hand Smoke Exposure: No Substance Use Type: Marijuana Current occupational status: disabled Current occupation: Rt handed Cognitive needs: No Hearing needs: No Vision needs: Yes Physical Exam ED Const Other: Appearance: Alert. Oriented X3. No acute distress. Eyes: Pupils equal, round and reactive to light. ENT: Pharynx normal. Neck: Normal inspection. Neck supple. No lymph nodes noted. No crepitus CVS: Normal heart rate and rhythm. Pulses normal. Normal S1 and S2 Respiratory: No respiratory distress. Breath sounds normal. No Wheezing. No rales Abdomen: Soft and nontender. No rigidity. No distention. Musculoskeletal. Pain to palpation around the right hip, barely able to flex and extend due to pain. Patient states this is her baseline. Skin: Skin warm and dry. Normal skin color. Normal skin turgor. Extremities: No lower extremity edema. No Lacerations. No Rash Neuro: Oriented X 3. No motor deficit. No sensory deficit. Moving all extremities. No slurred speech. CN 2 through 12 grossly intact Psych: calm, cooperative, normal affect Medical Decision Making Medical Decision Making MDM Narrative: -patient did not mean to come to the emergency room, patient thought that she would be going straight to the clinic for her appointment -the pain clinic is waiting for her -patient declined any further care in the ED. Patient would like to go to her appointment Differential Diagnosis Differential Diagnoses: The differential diagnosis associated with the presentation includes (Bursitis, arthritis, chronic pain) Discharge Plan Discharge Clinical Impression: Chronic hip pain Patient Disposition: Home, Self-Care Instructions: Hip Pain (ED), Chronic Pain (ED) Additional Instructions: Please follow-up with your primary care physician tomorrow. If you have any worsening or new symptoms, please return to the emergency room or call 911 Prescriptions: No Action (DME) heating pads Pad See Rx Instructions .ROUTE .MEDSUPPLY Qty: 1 0RF Rx Instructions: As directed albuterol sulfate 2.5 mg /3 mL (0.083 %) solution for nebulization 2.5 mg inhalation Q6H PRN (Reason: Wheezing) 30 Days Qty: 15 2RF valacyclovir 500 mg tablet 500 mg PO DAILY Qty: 90 0RF (DME) comp.stocking,thigh,long,x-lrg Misc See Rx Instructions .Route Qty: 12 0RF Rx Instructions: 20-30mmHg pressure (DME) waist high compression stockings extra large See Rx Instructions .Route .MEDSUPPLY Qty: 2 2RF Rx Instructions: As directed 20-30mm (DME) blood-glucose meter [FreeStyle Lite Meter] Kit See Rx Instructions .Route Qty: 1 0RF Rx Instructions: As directed to test blood sugars (DME) lancets [Safety Lancets] 28 gauge misc See Rx Instructions .Route Qty: 100 1RF Rx Instructions: test blood sugar once a day furosemide 40 mg tablet 40 mg PO DAILY 30 Days Qty: 30 5RF fluticasone propion-salmeterol [Advair Diskus] 100-50 mcg/dose blister with device 1 inh PO BID Qty: 60 6RF Eliquis 5 mg tablet 5 mg PO BID Qty: 180 0RF sennosides 8.6 mg tablet 17.2 mg PO BEDTIME PRN (Reason: Constipation) Qty: 180 0RF pantoprazole 20 mg tablet,delayed release (DR/EC) 40 mg PO DAILY Qty: 180 0RF atorvastatin 80 mg tablet 80 mg PO DAILY Qty: 90 0RF (DME) lancets [Accu-Chek Softclix Lancets] Misc See Rx Instructions .Route Qty: 100 0RF Rx Instructions: test blood sugar once a day ketoconazole 2 % cream 1 appl topical DAILY Qty: 60 0RF metformin 500 mg tablet 500 mg PO BID Qty: 180 3RF (DME) disposable bed pad See Rx Instructions .Route .MEDSUPPLY Qty: 60 11RF Rx Instructions: As directed dextroamphetamine-amphetamine [Adderall XR] 30 mg Capsule,Extended Release 24hr 30 mg PO DAILY quetiapine 100 mg tablet 100 mg PO DAILY quetiapine 300 mg tablet extended release 24 hr 300 mg PO BEDTIME trazodone 50 mg tablet 50 mg PO BEDTIME nicotine (polacrilex) 2 mg gum PO (DME) FreeStyle Lite Strips Strip See Rx Instructions .ROUTE .MEDSUPPLY Qty: 100 3RF Rx Instructions: test blood sugar once a day albuterol sulfate 90 mcg/actuation HFA aerosol inhaler 2 puff inhalation Q4-6H PRN (Reason: Wheezing) Qty: 8.5 3RF melatonin 5 mg tablet 5 mg PO BEDTIME methylphenidate HCl 36 mg tablet extended release 24hr 36 mg PO DAILY gabapentin 600 mg tablet 600 mg PO TID 30 Days Qty: 90 3RF
[2023-06-12 15:56] VITALS: BP 138/80; BP 175/69; PULSE 85; PULSE 86; RESP 18; O2SAT 98; BMI 43.6
== END 2023-06-12 16:03 | disposition home or self-care (01) ==
LOC: HO.ED 16:00
PROVIDERS: Emergency Provider Emergency Medicine; PCP Internal Medicine
DX: M25.551 Pain in right hip (principal); G89.29 Other chronic pain
CPT/HCPCS: 20610; 99282

== ENCOUNTER 2023-06-12 16:01 | Outpatient (AMB) | payer OTHER, SELFPAY ==
[2023-06-12 16:53] VITALS: BP 130/70; PULSE 61; RESP 18; O2SAT 96; BMI 43.6
--- NOTE | 2023-06-12 16:53 | A.OFFVIS_ITS ---
Intake Vital Signs 06/12/23 16:53 06/12/23 16:56 Height 5 ft 6 in 5 ft 6 in Weight 270 lb 270 lb BMI 43.6 43.6 BP 130/70 134/58 L Blood Pressure Location Lt brachial Lt brachial Position Sitting Sitting Respiration 18 18 Pulse 61 75 Pulse Source Pulse Oximeter Pulse Oximeter Pulse Oximetry (%) 96 94 Oxygen Delivery Method Room Air Room Air Comment pre-op post-op Intake Visit Reasons: BILAT INTRA-ARTIC STEROID HIP INJ *ATIVAN PRE-PROC Allergies ibuprofen Allergy (Severe, Verified 06/12/23 16:58) Swelling acetaminophen [Tylenol] Adverse Reaction (Unknown, Verified 06/12/23 16:58) kidney problems PFSH Medical History ADHD Amenorrhea Anxiety Bronchitis Callus of foot Chronic GERD COPD (chronic obstructive pulmonary disease) Depression Diabetes type 2, controlled Fibromyalgia Herpes simplex antibody positive Hx of kidney disease Hypothyroidism Insomnia Morbid obesity Obesity Schizophrenia (~08/22/21) Shoulder pain, right Venous insufficiency of both lower extremities Surgical History Hx of section Hx of cholecystectomy Hx of foot surgery Family History Father Substance use disorder Mother HTN (hypertension) Asthma Diabetes mellitus Substance use disorder Brother No problems noted. Brother Substance use disorder Son No problems noted. Daughter No problems noted. Daughter No problems noted. Daughter No problems noted. Social History Housing: Apartment Are you a primary long term care phlebotomist to a significant other at home: No Do you presently have visiting nurse or other home services: No Alcohol intake: never Patient Tobacco Use Status: Current someday Tobacco user Cigarettes Per Day: 4 Years Smoked: 30+ e-Cigarette/Vaping Use: Never Used Second Hand Smoke Exposure: No Substance Use Type: Marijuana Current occupational status: disabled Current occupation: Rt handed Cognitive needs: No Hearing needs: No Vision needs: Yes Physical Exam Vital Signs: Last Vital Signs Pulse 75 06/12/23 16:56 Resp 18 06/12/23 16:56 BP 134/58 L 06/12/23 16:56 Pulse Ox 94 06/12/23 16:56 Oxygen Delivery Method Room Air 06/12/23 16:56 BMI result Body Mass Index 43.6 Assessment & Plan Assessment & Plan (1) Lumbar spondylosis: Code(s): M47.816 - Spondylosis without myelopathy or radiculopathy, lumbar region (2) Fibromyalgia: Code(s): M79.7 - Fibromyalgia (3) Leg weakness, bilateral: Code(s): R29.898 - Other symptoms and signs involving the musculoskeletal system (4) Morbid obesity: Code(s): E66.01 - Morbid (severe) obesity due to excess calories (5) Primary osteoarthritis of both hips: Code(s): M16.0 - Bilateral primary osteoarthritis of hip (6) Bilateral hip pain: Code(s): M25.551 - Pain in right hip; M25.552 - Pain in left hip Plan: The patient called ambulance to have a ride for the injection. She was delivere d to emergency room my ambulance and after that she was readmitted to the injections center. She has difficulty ambulation and she is wheelchair bound. She is severely morbidly obese. She has lymphedema of bilateral lower extremities. Left Intra-articular hip injection. Patient refused to go for the right side injection due to impaired mobility and severe pain. - Informed consent was explained to the patient. All questions were explained and answered.? The patient was taken inside of the operating room where she was positioned right lateral decubitus on operating table..? Time-out was performed delineating patient's name and date of , correct site, side, the nature of the procedure, patient's allergy, preoperative antibiotic if needed, need for VT prophylaxis..? All operating room staff was participating in OR time-out procedure.? Patient remained awake? Left hip area of the patient was prepped with ChloraPrep and draped with sterile towels.? Sterilely draped C-arm was brought over the operating field and picture of left and right lateral views of the bilateral hip joints were delineated on the screen.? The smaller joint silhouette was chosen as the tar get.? Direction of the femoral neck was noted and the projection of that direction was delineated on the skin with skin markers.? Projection of the right trochanter to the skin was chosen as the initial needle insertion point.? After that the skin and subcutaneous tissues was anesthetized with 2% lidocaine 2.5 mL.? 22 gauge 5 in long needle was inserted through the skin and started to advance to the joint space under anterior posterior view.? When needle entered the capsule of the joint small amount of the contrast was injected delineating intra-articular space.? After that treatment solution containing ropivacaine 5 mL 0.5% and 40 mg of Kenalog was injected into the joint.? The needle was withdrawn sterile dressing was applied. After that patient was instructed that she needs to go to the stretcher and reposition herself on the operating table with dependent left hip and non dependent right hip. Patient refused to continue the procedure. Therefore only left side was injected. The patient was discharged back to emergency room from where she will be arranged a ride home. Plan 1. Patient reports no pain improvement with Lyrica and asking to switch back to gabapentin. Denies any side effects with Lyrica and not interested in dose up titration. Script provided for gabapentin as previously taken 600 mg TID. 2. Lumbar spine and SIJ xray results were reviewed with patient today and are noted above. 3. Schedule for Bilateral Intra-articular hip steroid injections with local and fluoroscopy for bilateral hip pain with weight bearing, changing positions or movements with getting out of bed or shower. Ativan 0.5-1 mg PO prn prior to procedure. All questions were answered and the patient is in agreement with the treatment plan. Follow up after injections and sooner if needed. Anticoagulation: Patient on anticoagulation (Eliquis) and instructions given on when to pause with prescribing physician permission. Justification for interventional therapy: ? Patient with average pain > 6/10 ? Patient has exhausted conservative therapy, including gabapentin, heating pads, home PT The risks, consequences, alternatives, and benefits of various treatment options were discussed with the patient in great detail, including conservative management, injections and procedures. Patient was informed of hyperglycemic effects of steroids. Most recent A1C=5.5. I hereby testify that I spent 12 minutes in conversation with this patient as well as with planning and coordinating care for this patient and organizing this note. Orders: Orders FL guidance in treatment room 06/12/23 M16.0 - Bilateral primary osteoarthritis of hip Coding Level of Care Code Procedure Only Diagnoses Lumbar spondylosis M47.816 Fibromyalgia M79.7 Leg weakness, bilateral R29.898 Morbid obesity E66.01 Primary osteoarthritis of both hips M16.0 Bilateral hip pain M25.551; M25.552
[2023-06-12 16:56] VITALS: BP 134/58; PULSE 75; RESP 18; O2SAT 94; BMI 43.6
== END 2023-06-12 16:32 | disposition home or self-care (01) ==
LOC: HO.PMCPRC 16:01
PROVIDERS: PCP Internal Medicine; Visit Provider Anesthesiology
DX: M25.552 Pain in left hip (principal)
CPT/HCPCS: 20610; 77002

== ENCOUNTER 2025-04-17 11:22 | Outpatient (REF) | payer OTHER, SELFPAY ==
[2025-04-17 16:26] LABS: MANUAL DIFF FLAG NO
[2025-04-17 16:34] LABS: Basophils Percent Auto 0.3 % (0-2); Eosinophils Absolute Auto 0.3 X10*3/uL (0.0-0.4); Eosinophils Percent Auto 4.9 % (0-4); Hematocrit 41.8 % (37.0-47.0); Hemoglobin 13.1 g/dl (12.0-16.0); Imm Gran Abs Auto 0.04 X10*3/uL (0.00-0.03); Imm Gran Pct Auto 0.7 % (0.0-0.4); Lymphocytes Absolute Auto 1.7 X10*3/uL (1.2-4.9); Lymphocytes Percent Auto 28.8 % (20-40); Mean Corpuscular HGB Conc 31.3 g/dl (31.0-35.0); Mean Corpuscular Hemoglobin 25.4 pg (27.0-33.0); Mean Platelet Volume 10.7 fL (9.4-12.3); Monocytes Absolute Auto 0.8 X10*3/uL (0.1-1.2); Monocytes Percent Auto 13.1 % (2-11); Neutrophils Percent Auto 52.2 % (45-73); Platelet Count 462 X10*3/uL (160-400); Red Blood Count 5.16 X10*6/uL (4.20-5.50); Red Cell Distribution Width 18.6 % (11.0-16.0); White Blood Count 5.7 X10*3/uL (4.8-10.8)
[2025-04-17 16:51] LABS: Alanine Aminotransferase 21 U/L (0-31); Albumin Level 3.6 g/dL (3.5-5.0); Alkaline Phosphatase 73 U/L (39-117); Anion Gap 12 (12-20); Aspartate Amino Transferase 49 U/L (5-31); Bilirubin Total 0.4 mg/dL (0.0-1.0); Blood Urea Nitrogen 6 mg/dL (9-16); Calcium 8.7 mg/dL (8.4-10.2); Carbon Dioxide 28 mmol/L (22-29); Chloride 106 mmol/L (96-108); Estimated Glomerular Filt Rate > 60; Glucose Random 105 mg/dL (60-115); Potassium 3.7 mmol/L (3.3-5.1); Sodium 142 mmol/L (135-145); Total Protein 6.7 g/dL (6.5-8.0)
[2025-04-17 17:11] LABS: TSH reflex Free T4 3.64 uIU/mL (0.32-4.0)
[2025-04-17 17:13] LABS: Estimated Average Glucose 120 mg/dL; Hemoglobin A1c % 5.8 % (<6.0); Total Hemoglobin (HGBA1C) 3392.4707 umol/L
[2025-04-20 03:54] LABS: LDL Cholesterol Direct 42 mg/dL (<100)
== END 2025-04-17 11:23 | disposition home or self-care (01) ==
LOC: HO.HMGCLDS 11:22
PROVIDERS: PCP Internal Medicine; Visit Provider Internal Medicine
DX: E11.9 Type 2 diabetes mellitus without complications (principal); E66.01 Morbid (severe) obesity due to excess calories; I63.9 Cerebral infarction, unspecified; E03.9 Hypothyroidism, unspecified; D75.839 Thrombocytosis, unspecified; J44.9 Chronic obstructive pulmonary disease, unspecified
CPT/HCPCS: 36415; 80053; 83036; 83721; 84443; 85025; 96127; 99212

== ENCOUNTER 2025-04-17 11:22 | Outpatient (AMB) | payer OTHER, SELFPAY ==
--- OUTSIDE RECORDS SUMMARY | 2022-07-05 10:15 | XMS_ITS | Continuity of Care Document ---
Author Organization [facility] Address [address] [facility] [address] [place] [phone] Phone Care Team Providers Care Customer Success Intern Name Role Phone Skinny Conn Unavailable Unavailable Procedures Procedure Date PT Did Not Receive Services PT Did Not Receive Services Advance Directives Directive Yes / No Effective Date File Name No Information Encounters Encounter Description Practice Location Reason(s) For Visit Diagnoses Date Provider Providers Copied on Encounter [facility], [address] [facility] [address], [place], [id number], tel:[phone] [facility] No Information Senia Babb. [address], [place], [facility], . tel:[phone] Referring Provider: Skinny Kruse, [address], [place], [facility]. tel:[phone] [facility], [address] [facility] [address], [place], [place], [id number], tel:[phone] [facility] No Information Senia Babb. [address], [place], [address], . tel:[phone] Referring Provider: Skinny Kruse, [address], [place], [address]. tel:[phone] [facility], [address], [id number], tel:[phone] [facility] No Information Senia Babb. [address], [address], [place], [address], . [phone] Referring Provider: Skinny Kruse, [address], [place], [address]. tel:[phone] Family History Family Member Type Diagnosis Age At Onset No Information Payers Payer name Insurance type Covered alliance party ID Reza christensen(s) [facility] [id number] Medical Assistance [facility] [id number] Social History Type Description Quantity Date Captured Comments Sex Female Smoking Status No Information Chief Complaint And Reason For Visit No Information Reason For Referral Reason For Referral No Information History Of Present Illness Encounter Date Complaint History Of Prese nt Illness No Information Functional Status Date Functional Assessmen t No Information Instructions Date Instruction Additional Infor mation No Information Assessments Type Assessment Date No Information Patient Care Teams Name Effective Dates (start - stop) Status Members No Information
[2025-04-17 11:45] VITALS: BP 102/60; PULSE 76; RESP 20; TEMP 36.5; O2SAT 97
--- NOTE | 2025-04-17 11:45 | MHC.PC.OV ---
Vital Signs 04/17/25 11:45 Height 5 ft 6 in BMI Reason not done Palliative Care Patient BP 102/60 Blood Pressure Location Rt brachial Position Supine Respiration 20 Pulse 76 Pulse Source Pulse Oximeter Temp 97.7 F Temp Source Oral Pulse Oximetry (%) 97 Oxygen Delivery Method Room Air Intake Visit Reasons: F/u from rehab Intake Note: Pt is here today for a follow up on Rehab. Allergies ibuprofen Allergy (Severe, Verified 04/17/25 11:56) Swelling acetaminophen (Tylenol) Adverse Reaction (Unknown, Verified 04/17/25 11:56) kidney problems Medication List - Last Reconciled 04/17/25 by Raina Tobin MD albuterol sulfate 2.5 mg (3 mL) inhalation Q6H PRN 30 days albuterol sulfate 90 mcg/actuation 2 puffs inhalation Q4-6H PRN apixaban (Eliquis) 5 mg PO BID atorvastatin 80 mg PO DAILY [Bilateral AFO for positioning As directed] blood sugar diagnostic (FreeStyle Lite Strips) test blood sugar once a day blood-glucose meter (FreeStyle Lite Meter kit) As directed to test blood sugars comp.stocking,thigh,long,x-lrg 20-30mmHg pressure diclofenac sodium 1% 4 grams topical TID [disposable bed pad As directed] duloxetine 30 mg PO BID fluticasone propion-salmeterol 100-50 mcg/dose (Advair Diskus) 1 inh PO BID heating pads As directed lancets (Safety Lancets) test blood sugar once a day metformin 500 mg PO BID pantoprazole 40 mg (2 x 20 mg) PO DAILY polyethylene glycol 3350 (Miralax) 17 grams PO TID pregabalin 150 mg PO TID quetiapine 100 mg PO DAILY quetiapine 200 mg PO BEDTIME sennosides 17.2 mg (2 x 8.6 mg) PO BEDTIME PRN tizanidine 4 mg PO Q8H PRN torsemide 20 mg PO BEDTIME trazodone 25 mg PO BEDTIME [waist high compression stockings As directed 20-30mm] [washable bed pad As directed] zinc oxide 20% topical Tobacco use date assessed: 04/17/25 Dental Screening Dental Screen Date: 04/17/25 Did you have a dental visit in the last 12 months?: No Did you have a dental problem in the last 6 months where you did not have access to dental care?: No Was dental information given to patient?: Patient declined HPI F/u from rehab HPI Details Patient presents for the follow-up after discharge from inpatient rehabilitation facility a month ago. Patient has been in inpatient rehabilitation facilities on and off for the last 3 years due to lower extremity weakness and general muscle weakness and inability to walk. Patient has been bed ridden for the last 3 years. She has a VNA services and home health aide. Patient is established with psychiatrist for Bipolar disorder controlled on current medications. Patient is taking Eliquis for recurrent DVTs and thromboembolic CVA. diabetes has been controlled on Mounjaro according to VNA. patient was treated with sliding scale insulin during her most recent stay in the rehabilitation. she has been using albuterol as needed for chronic asthma. Patient is established with [facility] for chronic decubitus ulcers on her heels and sacrum [facility] Medical History (Updated 04/17/25 @ 15:38 by Raina Tobin MD) Shoulder pain, right Venous insufficiency of both lower extremities ADHD Hypothyroidism Fibromyalgia Insomnia Morbid obesity Callus of foot Diabetes type 2, controlled Anxiety Depression Hx of kidney disease Bronchitis Chronic GERD Surgical History Hx of foot surgery Hx of cholecystectomy Hx of section Family History Father Substance use disorder Mother HTN (hypertension) Asthma Diabetes mellitus Substance use disorder Brother No problems noted. Brother Substance use disorder Son No problems noted. Daughter No problems noted. Daughter No problems noted. Daughter No problems noted. Social History Housing: Apartment Are you a primary healthcare analyst to a significant other at home: No Do you presently have visiting nurse or other home services: No Alcohol intake: never Patient Tobacco Use Status: Current someday Tobacco user Cigarettes Per Day: 4 Years Smoked: 30+ e-Cigarette/Vaping Use: Never Used Second Hand Smoke Exposure: No Substance Use Type: Marijuana service: No Current occupational status: disabled Current occupation: Rt handed Cognitive needs: No Hearing needs: No Vision needs: Yes Questionnaire PHQ-9 Over the last 2 weeks, how often have you been bothered by any of the following problems? 1. Little interest or pleasure in doing things: several days 2. Feeling down, depressed, or hopeless: more than half the days 3. Trouble falling or staying asleep, or sleeping too much: not at all 4. Feeling tired or having little energy: nearly every day 5. Poor appetite or overeating: more than half the days 6. Feeling bad about yourself - or that you are a failure or have let yourself or your family down: more than half the days 7. Trouble concentrating on things, such as reading the newspaper or watching television: not at all 8. Moving or speaking so slowly that other people could have noticed. Or the opposite - being so fidgety or restless that you have been moving around a lot more than usual: several days 9. Thoughts that you would be better off or of hurting yourself in some way: not at all Total score: 11 Depression Screening Interpretation: Positive Depression Screening Done: Yes 32298 - PHQ-9 Billing: Yes Source: Developed by Drs. Waldemar Oneill, Isha Watkins, Jose Carlos Yen and colleagues, with an educational angela from [employer]. Thrive Questionnaire Date Thrive assessed: 04/17/25 I am a: Patient What is your living situation today?: I choose not to answer this question Within the past 12 months, did the food you bought not last and you didn't have the money to get more?: Never true Within the past 12 months, did you worry whether your food would run out before you got money to buy more?: Never true Do you have trouble paying for medicines?: No Do you have trouble getting transportation to medical appointments?: Yes Do you have trouble paying your heating and electricity bill?: Yes Do you have trouble taking care of your child, family member or friend?: No Do you have trouble with day-to-day activities such as bathing, preparing meals, shopping, managing finances, etc.?: Yes Are you currently unemployed and looking for a job?: Yes Are you interested in more education?: No Please select the resources that you would like help with: Utilities Currently or been in a relationship where the following occur: No concerns reported THRIVE Score: 2 AUDIT C Alcohol Use Questionnaire (AUDIT-C) 1. How often do you have a drink containing alcohol?: Never 3. How often do you have six or more drinks on one occasion?: Never Total Score: 0 ULISES-7 AMB Questionnaire ULISES-7 Date ULISES - 7 assessed: 04/17/25 Feeling nervous, anxious, or on edge: 0 = Not at all Not being able to stop or control worryin = Several days Worrying too much about different things: 1 = Several days Trouble relaxin = Not at all Being so restless that it is hard to sit still: 0 = Not at all Becoming easily annoyed or irritable: 0 = Not at all Feeling afraid as if something awful might happen: 0 = Not at all Total ULISES-7 score (0-4 normal; 5-9 mild; 10-14 moderate; 15-21 severe): 2 Source: Developed by Drs. Waldemar Oneill, Isha Watkins, Jose Carlos Yen and colleagues, with an educational angela from [employer]. ULISES-7 Assessment Billing ULISES-7 Assessment Tool: ULISES-7 Assessment 37078 Review of Systems Const All systems reviewed & are unremarkable except as noted in HPI and below Eyes Reports no additional complaints ENT Reports no additional complaints Card Reports no additional complaints Resp Reports no additional complaints GI Reports no additional complaints Reports no additional complaints Physical exam (Primary Care) Vital Signs: Last Vital Signs Temp 97.7 F 04/17/25 11:45 Pulse 76 04/17/25 11:45 Resp 20 04/17/25 11:45 BP 102/60 04/17/25 11:45 Pulse Ox 97 04/17/25 11:45 Oxygen Delivery Method Room Air 04/17/25 11:45 Tobacco/Smoking Status: Tobacco use Status Tobacco use date assessed 04/17/25 04/17/25 12:02 Patient Tobacco Use Status Current someday Tobacco 04/17/25 11:46 e-Cigarette/Vaping Use Never Used 04/17/25 11:46 PHQ-9: PHQ-9 Score PHQ-9: Total score 11 04/17/25 15:06 Depression Screening Interpretation: Positive Thrive Assessment: Date of Thrive Assessment Date Thrive assessed 04/17/25 04/17/25 12:02 Currently or been in a relationship where the following occur: No concerns reported Const General: no acute distress HENMT Head: Yes normal to inspection Mouth: Normal oral and palatal mucosa present Neck Neck: Yes supple Resp Effort & Inspection: normal respiratory effort Auscultation: clear to auscultation bilaterally Cardio Rhythm: regular rhythm Heart sounds: S1 normal heart sound present and S2 normal heart sound present GI Inspection: Yes normal to inspection Palpation (GI): Soft to palpation Percussion: Yes normal to percussion Auscultation: normal bowel sounds Extrem Other: Nonpitting edema bilateral lower extremities Coding Level of Care Code Est Pt Level 4 (26248) Complex EM visit Add On G2211 Diagnoses Diabetes type 2, controlled E11.9 Morbid obesity E66.01 CVA (cerebral vascular accident) I63.9 Lower extremity weakness R29.898 Asthma J45.909 Bipolar disorder F31.9 Additional Codes ULISES-7 Assessment Billing - ULISES-7 Assessment Tool: ULISES-7 Assessment 72998 ([id number]) PHQ-9 - 62584 - PHQ-9 Billing: Yes ([id number]) Assessment & Plan Assessment & Plan (1) Diabetes type 2, controlled: Comment: A1C-5.5 on 03/05/13 Code(s): E11.9 - Type 2 diabetes mellitus without complications Category: Medical Plan: Check A1c today. Patient has VNA will report the most recent dose of Mounjaro (2) Morbid obesity: Code(s): E66.01 - Morbid (severe) obesity due to excess calories Category: Medical Plan: Decreasing caloric intake and weight loss discussed with the patient (3) CVA (cerebral vascular accident): Comment: 05/12,[facility], MULTIPLE THROMBOEMBOLIC, on Eliquis Code(s): I63.9 - Cerebral infarction, unspecified Category: Medical Plan: Continue Eliquis and high dose statin (4) Lower extremity weakness: Comment: Since 2021, bed ridden, unclear etiology , Code(s): R29.898 - Other symptoms and signs involving the musculoskeletal system Category: Medical Plan: Unclear etiology, taking tizanidine PRN (5) Asthma: Comment: Mild Code(s): J45.909 - Unspecified asthma, uncomplicated Category: Medical Plan: Albuterol PRN (6) Bipolar disorder: Comment: Established with Psychiatry Code(s): F31.9 - Bipolar disorder, unspecified Category: Medical Plan: Follow-up with psychiatry controlled on Seroquel trazodone prazosin duloxetine Lyrica Orders: Orders Lipid Panel Today D75.839 - Thrombocytosis, unspecified, E03.9 - Hypothyroidism, unspecified, E11.9 - Type 2 diabetes mellitus without complications, E66.01 - Morbid (severe) obesity due to excess calories, I63.9 - Cerebral infarction, unspecified, J44.9 - Chronic obstructive pulmonary disease, unspecified LDL Cholesterol Direct Today D75.839 - Thrombocytosis, unspecified, E03.9 - Hypothyroidism, unspecified, E11.9 - Type 2 diabetes mellitus without complications, E66.01 - Morbid (severe) obesity due to excess calories, I63.9 - Cerebral infarction, unspecified, J44.9 - Chronic obstructive pulmonary disease, unspecified Microalbumin, Random (w Creat) Today D75.839 - Thrombocytosis, unspecified, E03.9 - Hypothyroidism, unspecified, E11.9 - Type 2 diabetes mellitus without complications, E66.01 - Morbid (severe) obesity due to excess calories, I63.9 - Cerebral infarction, unspecified, J44.9 - Chronic obstructive pulmonary disease, unspecified Comprehensive Met. Panel Today D75.839 - Thrombocytosis, unspecified, E03.9 - Hypothyroidism, unspecified, E11.9 - Type 2 diabetes mellitus without complications, E66.01 - Morbid (severe) obesity due to excess calories, I63.9 - Cerebral infarction, unspecified, J44.9 - Chronic obstructive pulmonary disease, unspecified Complete Blood Count Auto Diff Today D75.839 - Thrombocytosis, unspecified, E03.9 - Hypothyroidism, unspecified, E11.9 - Type 2 diabetes mellitus without complications, E66.01 - Morbid (severe) obesity due to excess calories, I63.9 - Cerebral infarction, unspecified, J44.9 - Chronic obstructive pulmonary disease, unspecified Hemoglobin A1c Today D75.839 - Thrombocytosis, unspecified, E03.9 - Hypothyroidism, unspecified, E11.9 - Type 2 diabetes mellitus without complications, E66.01 - Morbid (severe) obesity due to excess calories, I63.9 - Cerebral infarction, unspecified, J44.9 - Chronic obstructive pulmonary disease, unspecified TSH reflex Free T4 Today D75.839 - Thrombocytosis, unspecified, E03.9 - Hypothyroidism, unspecified, E11.9 - Type 2 diabetes mellitus without complications, E66.01 - Morbid (severe) obesity due to excess calories, I63.9 - Cerebral infarction, unspecified, J44.9 - Chronic obstructive pulmonary disease, unspecified Medications: Changed From tizanidine 6 mg (3 x 2 mg) PO BID PRN 180 tabs 0RF muscle spasticity To tizanidine 4 mg PO Q8H PRN muscle spasticity Discontinued metformin Discontinued Reason: Doctor's Order 500 mg PO BID 180 tabs 3RF fluticasone propion-salmeterol 100-50 mcg/dose (Advair Diskus) Discontinued Reason: Duplicate 1 inh PO BID 60 ea 6RF lancets (Accu-Chek Softclix Lancets) Discontinued Reason: Ancillary Entered New Order test blood sugar once a day 100 ea 0RF E11.9 - Type 2 diabetes mellitus without complications
== END 2025-04-17 13:34 | disposition home or self-care (01) ==
PROVIDERS: PCP Internal Medicine; Visit Provider Internal Medicine
DX: E11.9 Type 2 diabetes mellitus without complications (principal); E66.01 Morbid (severe) obesity due to excess calories; F31.9 Bipolar disorder, unspecified; I63.9 Cerebral infarction, unspecified; R29.898 Other symptoms and signs involving the musculoskeletal system; J45.909 Unspecified asthma, uncomplicated

== ENCOUNTER → 2025-06-29 23:59 | Outpatient (BNV) | payer MEDICARE, MEDICAID, SELFPAY | PROVIDERS: PCP Internal Medicine; Visit Provider Internal Medicine | DX: M79.7 Fibromyalgia (principal); F19.10 Other psychoactive substance abuse, uncomplicated | CPT/HCPCS: G0179 ==

== ENCOUNTER 2025-07-17 08:32 | Outpatient (AMB) | payer MEDICARE, MEDICAID, SELFPAY ==
--- NOTE | 2025-07-17 08:45 | A.OFFVIS_ITS ---
Intake Visit Reasons: New Pt- Rt foot pain Intake Note: Cass is a 49 year old female who presents today as a new patient to evaluate her Bilateral foot pain. Pt states no previous injury to her feet and she has had the pain for 4 years. She mentions she has metal in her right great toe due to a previous surgery back in 2018 in [place]. She states her pain runs through the whole foot and the ankles. she has no previous imaging. Patient states she needs to have bilateral injection in her feet. Allergies ibuprofen Allergy (Severe, Verified 07/17/25 08:45) Swelling acetaminophen (Tylenol) Adverse Reaction (Unknown, Verified 07/17/25 08:45) kidney problems HPI HPI New Pt- Rt foot pain: Details: The patient is a 49-year-old female past medical history of CVA (2021), lumbar spondylosis, obesity, type 2 diabetes, hypothyroidism, GERD, fibromyalgia, osteoarthritis of her hips, who presents for initial evaluation of bilateral lower extremity pain. The ankle and foot pain has persisted for four years. She describes it as a severe spasms and stiffness of her bilateral lower extremities which worsen when she is sitting or lying down. She mentions she has been discharged from multiple different inpatient rehabilitation facilities over the past 3-4 years for her weakness, most recently discharged back home 1 month ago. She states that she occasionally walks at home with a walker and is able to walk a few steps. She works with a physical therapy at home twice a week for gait mobility and lower extremity strengthening. The patient experiences frequent leg spasms from the thighs to the feet, causing significant discomfort. These spasms occur multiple times an hour and are worsened by certain movements and positions. She has not seen a neurologist recently and lacks regular follow-up for her stroke history. The patient states she has a history of rheumatoid arthritis affecting her hips and feet, and fibromyalgia contributing to her pain and sensitivity. She also has a fungal nail infection, which causes her severe discomfort whenever she changes her socks and walks. Social History: - The patient lives at home with her fianc? and daughter, who assist with her care. - The patient uses a walker for mobility and receives physical therapy at home. [facility] Medical History (Updated 07/17/25 @ 15:37 by Shaun Burgess DPM) Shoulder pain, right Venous insufficiency of both lower extremities ADHD Hypothyroidism Fibromyalgia Insomnia Morbid obesity Callus of foot Diabetes type 2, controlled Anxiety Depression Hx of kidney disease Bronchitis Chronic GERD Surgical History Hx of foot surgery Hx of cholecystectomy Hx of section Family History Father Substance use disorder Mother HTN (hypertension) Asthma Diabetes mellitus Substance use disorder Brother No problems noted. Brother Substance use disorder Son No problems noted. Daughter No problems noted. Daughter No problems noted. Daughter No problems noted. Social History Housing: Apartment Are you a primary wound care coordinator to a significant other at home: No Do you presently have visiting nurse or other home services: No Alcohol intake: never Patient Tobacco Use Status: Current someday Tobacco user Cigarettes Per Day: 4 Years Smoked: 30+ e-Cigarette/Vaping Use: Never Used Second Hand Smoke Exposure: No Substance Use Type: Marijuana service: No Current occupational status: disabled Current occupation: Rt handed Cognitive needs: No Hearing needs: No Vision needs: Yes Review of Systems Const All systems reviewed & are unremarkable except as noted in HPI and below Physical Exam Extrem Other: *Bilateral Lower Extremity Focused Foot Exam Vascular: DP/PT 2/4 bilaterally, CFT<3s to digits, TG warm to cool, no pedal edema, pedal hair present Derm: Skin: Severe xerosis bilateral feet, no annular scaling. Plantar left heel dry hyperkeratotic lesion. Interdigital spaces: Clear, no maceration or fungal infection. Nails: Thickened elongated dystrophic nails with subungual debris x 10. Neuro: Protective sensation to bilateral lower extremities. Msk: Moderate pain on palpation along dorsal, medial, lateral, and plantar aspects of bilateral feet, worse to central aspects of her midfoot along medial/central plantar fascia bands. Tight achilles tendon bilaterally, ankle dorsiflexion 0 degrees on knee extension. Deformities: Abducted hallux valgus deformity bilaterally, abducted digits 2 through 5 bilaterally. Muscle strength: Passive range of motion intact to bilateral feet and ankles. Gait: Unable to assess due to stretcher/non-weightbearing. Office Procedures AMB Debridement/Avulsion Podia Details: Procedure: Nail debridement Location: Bilateral feet Anesthesia: N/A Description: The affected toenails were cleansed with an antiseptic solution. Using sterile nail nippers and a rotary monica, dystrophic and mycotic nail material was carefully debrided and reduced in thickness. Care was taken to avoid trauma to the surrounding skin and nail bed. All debris was removed as tolerated. The area was inspected for signs of infection or ulceration. Patient tolerated the procedure well without complications. Tolerance: Patient tolerated procedure well, no immediate complications. Class A and B findings as per physical exam findings above. The patient has a diagnosis of lower extremity weakness, limited mobility, and polyarthritis. She presents with elongated, thickened toenails. Due to underlying comorbidities , the patient is at increased risk for complications such as ulceration, infection, and difficulty with self-care. Debridement of elongated toenails is medically necessary to prevent development of pressure- related lesions, reduce risk of secondary infection, and maintain foot health in her high-risk comorbidities. [id number] of Nail 6+ Procedure code (CPT) selection complete Results Reviewed Results Reviewed: Laboratory Tests 04/17/25 12:33 Hemoglobin A1c % 5.8 Date of Service: 03/27/23 Procedure(s): XR lumbar spine 6V w bending EXAMINATION: Lumbar spine and sacroiliac joint x-rays CLINICAL INFORMATION: Spondylosis without myelopathy or radiculopathy 6 views of the lumbar spine including bilateral oblique and flexion and extension views. 3 views of the sacroiliac joints. FINDINGS: Lumbar sacral spine: Bone alignment is normal. No fracture or dislocation. No instability on flexion-extension views. Mild degenerative spondylosis at L3-L4. Mild disc space narrowing at L5-S1. Mild lower lumbar spine facet arthritis. No pars defect. Sacroiliac joints: The sacroiliac joints are normal-appearing. No evidence of proliferative or erosive arthritis. Mild degenerative changes at the hip joints. Assessment & Plan Assessment & Plan (1) Lower extremity weakness: Comment: Since 2021, bed ridden, unclear etiology , Code(s): R29.898 - Other symptoms and signs involving the musculoskeletal system Category: Medical Plan: * Patient requested cortisone injections for her feet. Explained that there is no indications for injections for her her lower extremity spasms and pain at this time. * Instructed to continue physical therapy. (2) CVA (cerebral vascular accident): Comment: 05/12,[facility], MULTIPLE THROMBOEMBOLIC, on Eliquis Code(s): I63.9 - Cerebral infarction, unspecified Category: Medical Qualifiers: Laterality of affected vessel: unspecified Plan: * Long-lasting weakness after CVA (3) Leg paresthesia: Code(s): R20.2 - Paresthesia of skin Category: Medical Plan: * Explained that she may be experiencing lower extremity spasms and paresthesias from radiculopathy. * Instructed to follow up with her PCP or poison information specialist. * Neurology referral for further work up of etiology (4) Plantar fasciitis, bilateral: Code(s): M72.2 - Plantar fascial fibromatosis Category: Medical Plan: * Patient does have some isolated plantar foot pain bilaterally. * X-rays bilateral feet and ankles ordered. * She will be recommended night splints. * Otherwise, physical therapy will be the mainstay of her treatment. (5) Lumbar spondylosis: Code(s): M47.816 - Spondylosis without myelopathy or radiculopathy, lumbar region Category: Medical Plan: * New lumbar x-rays ordered * Will be referred to her primary team for further work up (6) Diabetes type 2, controlled: Comment: A1C-5.5 on 03/05/13 Code(s): E11.9 - Type 2 diabetes mellitus without complications Category: Medical Plan: * No clinical signs of infection at this time. * A1C well controlled. (7) Fibromyalgia: Code(s): M79.7 - Fibromyalgia Category: Medical Plan: * (8) Tinea unguium: Code(s): B35.1 - Tinea unguium Category: Medical Plan: * Debrided elongated thickened nails x 10. * Rx ciclopirox. Explained to the patient that her fungus infection is pretty advanced and she may not benefit from topical solution however patient requested prescription. * Rx Amlactin for her xerosis/dry skin Orders: Orders XR Foot Pantera 3V Today M79.671 - Pain in right foot, M79.672 - Pain in left foot XR lumbar spine 4V min Today M47.816 - Spondylosis without myelopathy or radiculopathy, lumbar region, R20.2 - Paresthesia of skin XR Ankle Pantera min 3V Today M79.671 - Pain in right foot, M79.672 - Pain in left foot AMB Debridement/Avulsion Podiatry Today B35.1 - Tinea unguium Referrals Neurology Referral R20.2 - Paresthesia of skin Medications: New ciclopirox 8% 1 appl topical BEDTIME 6.6 mL 3RF nail fungus 4 weeks B35.1 - Tinea unguium ammonium lactate 12% (AmLactin) 1 appl topical BID 225 grams 3RF dry skin bilateral feet L84 - Corns and callosities Discontinued tizanidine Discontinued Reason: Doctor's Order 4 mg (2 x 2 mg) PO Q8H PRN 90 tabs 3RF muscle spasticity Coding Level of Care Code New Pt Level 4 (79746) Diagnoses Lower extremity weakness R29.898 CVA (cerebral vascular accident) I63.9 Laterality of affected vessel: unspecified Leg paresthesia R20.2 Plantar fasciitis, bilateral M72.2 Lumbar spondylosis M47.816 Diabetes type 2, controlled E11.9 Fibromyalgia M79.7 Tinea unguium B35.1 CPT Codes Skin Debridement - CPT: 81751-Dntclcrofzo of Nail 6+ ([id number]) Time Spent (min) 45
--- OUTSIDE RECORDS SUMMARY | 2025-07-17 08:51 | XMS_ITS | Clinical Summary ---
Author Organization [facility] Address [address] [place] [address] Phone Care Team Providers Care Cosmetic Consultant Name Role Phone Andreina Moore MD Primary Care Provider [phone] Allergies Active Allergy Reactions Criticality Noted Date Comments Acetaminophen Medium 04/14/2025 Ibuprofen Medium 04/14/2025 Medications albuterol 2.5 mg /3 mL (0.083 %) nebulizer solution Take 3 mL (2.5 mg total) by nebulization every 4 (four) hours if needed for shortness of breath. 5 Active atorvastatin (LIPITOR) 80 mg tablet Take 1 tablet (80 mg total) by mouth at bedtime. 5 Active baclofen (LIORESAL) 20 mg tablet Take 1 tablet (20 mg total) by mouth 3 (three) times a day. 5 Active cyclobenzaprine (FLEXERIL) 10 mg tablet Take 1 tablet (10 mg total) by mouth 3 (three) times a day if needed for muscle spasms. 5 Active DULoxetine (CYMBALTA) [address] capsule Take 1 capsule (20 mg total) by mouth 2 (two) times a day. 4 Active Eliquis 5 mg tablet Take 1 tablet (5 mg total) by mouth 2 (two) times a day. 5 Active HumaLOG U-100 Insulin 100 unit/mL injection Inject 1 Units under the skin 3 (three) times a day before meals. Per sliding scale 5 Active lidocaine (LIDODERM) 5 % patch Apply 1 patch topically 1 (one) time each day. 5 Active pregabalin (LYRICA) 200 mg capsule Take 1 capsule (200 mg total) by mouth 3 (three) times a day. Max Daily Amount: 600 mg 5 Active Mounjaro 5 mg/0.5 mL injection Inject 0.5 mL (5 mg total) under the skin every 7 (seven) days. 5 Active pantoprazole (PROTONIX) 40 mg EC tablet Take 1 tablet (40 mg total) by mouth 1 (one) time each day before breakfast. 7 Active prazosin (MINIPRESS) 1 mg capsule Take 1 capsule (1 mg total) by mouth at bedtime. 5 Active QUEtiapine (SEROquel) 100 mg tablet Take 1 tablet (100 mg total) by mouth 2 times daily. 7 Active torsemide (DEMADEX) 20 mg tablet Take 1 tablet (20 mg total) by mouth 1 (one) time each day. 5 Active traZODone (DESYREL) 150 mg tablet Take 0.5 tablets (75 mg total) by mouth at bedtime. 5 Active loratadine (CLARITIN) 10 mg tablet Take 1 tablet (10 mg total) by mouth 1 (one) time each day. Active senna (SENOKOT) 8.6 mg tablet Take 2 tablets (17.2 mg total) by mouth 1 (one) time each day. Active calcium carbonate (TUMS) 500 mg (200 mg elemental calcium) chewable tablet Chew 2 tablets (1,000 mg total) every 8 (eight) hours if needed for indigestion or heartburn. Active albuterol HFA (PROAIR HFA ; PROVENTIL HFA ; VENTOLIN HFA) 90 mcg/actuation inhaler Inhale 2 puffs by mouth every 6 (six) hours if needed for wheezing or shortness of breath. Active naloxone (NARCAN) 4 mg/0.1 mL nasal spray Administer 1 each (4 mg total) into affected nostril(s) if needed for opioid reversal. Give 4 mg (1 spray) into one nostril. May repeat every 2-3 minutes if needed, alternating nostrils, until medical assistance becomes available. Active Active Problems Problem Noted Date Diagnosed Date Callus of foot 04/14/2025 Type 2 diabetes mellitus wit h other skin complications ([facility] V24, [facility] V28) 04/14/2025 Pressure injury of right thi gh, stage 2 ([facility] V24, [facility] V28) 04/14/2025 Pressure ulcer of left butto ck, stage 2 ([facility] V24, [facility] V28) 04/14/2025 Dermatitis associated with moisture 04/14/2025 Encounters Date Type Department Care Team Description 05/07/2025 Telephone [facility] [address] [place] [phone] Drea Langford RN from Last 3 Months Surgical History Surgery Date Site/Laterality Comments OTHER SURGICAL HISTORY PROCEDURE: ANALGESIA FOR LABOR/; COMMENT: x 4 CHOLECYSTECTOMY PROCEDURE: HISTORICAL CHOLECYSTECTOMY NECK SURGERY PROCEDURE: HISTORICAL NECK SURGERY TUBAL LIGATION PROCEDURE: HISTORICAL TUBAL LIGATION FOOT SURGERY 11/2016 Right PROCEDURE: HISTORICAL FOOT SURGERY Medical History Medical History Date Comments Fibromyalgia DX:Fibromyalgia COPD (chronic obstructive pu lmonary disease) ([facility] V24, [facility] V28) DX:COPD (chronic o bstructive pulmonary disease) ([facility]) Lymphedema DX:Lymphedema Osteoarthritis DX:Osteoarthriti s Hypothyroid DX:Hypothyroid Anxiety DX:Anxiety Depression 06/02/2015 DX:Depression Psychosis ([facility] V24, [facility] V28) 06/02/2015 DX:Psychosis ([facility]) Polysubstance abuse ([facility] V24, [facility] V28) 06/02/2015 DX:Polysubstance abuse ([facility]) Keloid 06/02/2015 DX:Keloid 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 DX:Latent tuberculosis by blood test; COMMENT: T-spot positive Morbid obesity ([facility] V24, [facility] V28) 06/02/2015 DX:Morbid obesity ([facility]) CKD (chronic kidney disease) stage 3, GFR 30-59 ml/min ([facility] V24, [facility] V28) 06/02/2015 DX:CKD (chronic kidney disea se) stage 3, GFR 30-59 ml/min ([facility]) Type 2 diabetes, controlled, with renal manifestation ([facility] V24, [facility] V28) DX:Type 2 diabetes, controll ed, with renal manifestation ([facility]) Esophageal reflux DX:Esophageal reflux Cocaine abuse in remission ( CMS/HCC V24, CMS/HCC V28) DX:Cocaine abuse in remissio n ([facility]) Hx of syphilis DX:Hx of syphili s; COMMENT: was treated at the age of 16. Family History Medical History Relation Name Comments Heart attack Aunt and 2 cousins w [place] Cataracts Maternal Grandfather Glaucoma Maternal Grandmother Other cancer Mother's side 1 testicular; grandfather Other cancer Mother's side 2 testicular; uncle Breast cancer Mother's side 3 aunt Breast cancer Mother's side 4 aunt Cataracts Uncle Glaucoma Uncle Blindness Neg Hx Macular degeneration Neg Hx Strabismus Neg Hx Relation Name Status Comments Aunt Maternal Grandfather Maternal Grandmother Mother's side 1 Mother's side 2 Mother's side 3 Mother's side 4 Uncle Social History Tobacco Use Types Packs/Day Years Used Date Smoking Tobacco: Some Days Alcohol Use Standard Drinks/Week Comments No 0 (1 standard drink = 0.6 oz pur e alcohol) Comments Unknown Sex and Gender Information Value Date Recorded Sex Assigned at Not on file Legal Sex Female 12:35 PM EST Gender Identity Not on file Sexual Orientation Not on file Obstetrics History Last Filed Vital Signs Vital Sign Reading Time Taken Comments Blood Pressure 112/76 04/14/2025 2:06 PM EDT Pulse 85 04/14/2025 2:06 PM EDT Temperature 36.5 C (97.7 F) 04/14/2025 2:06 PM EDT Respiratory Rate 18 04/14/2025 2:06 PM EDT Oxygen Saturation 95% 04/14/2025 2:06 PM EDT Inhaled Oxygen Concentration - - Weight 159 kg (350 lb) 04/14/2025 2:06 PM EDT Height 167.6 cm (5' 6 ) 04/14/2025 2:06 PM EDT Body Mass Index 56.49 04/14/2025 2:06 PM EDT Plan of Treatment Health Maintenance Due Date Last Done Comments Breast Cancer Screening 1973 Diabetes: Annual Foot Exam 1983 Diabetes: Annual Retina Eye Exam 1983 DTaP,Tdap,and Td Vaccines (1 - Tdap) 1992 Hepatitis A Vaccines (1 of 2 - Risk 2-dose series) 1992 Hepatitis B Vaccines (1 of 3 - 19+ 3-dose series) 1992 Zoster Vaccines (1 of 2) 1992 Cervical Cancer Screening: Pap Smear 1994 Pneumococcal Vaccine: 50+ Years (2 of 2 - PCV) 10/14/2014 10/14/2013 Colorectal Cancer Screening: Colonoscopy 11/20/2023 Diabetes: Annual Urine Albumin-Creatinine Ratio (uACR) 11/20/2023 Diabetes: Blood Sugar Control Test (HGBA1C) 11/20/2023 HIV Screening 11/20/2023 Hepatitis C Screening 11/20/2023 Medicare Annual Wellness Visit 11/20/2023 Social Influencers of Health Screening 11/20/2023 COVID-19 Vaccine (2 - Pfizer risk series) 09/16/2024 08/26/2024 Diabetes: Annual GFR (Glomerular Filtration Rate) 02/11/2025 02/12/2024, 01/14/2024, 12/24/2023, Additional history exists Influenza Vaccine (#1) 2025 08/26/2024, 2013 Cholesterol Screening (Lipid Panel) 01/13/2029 01/14/2024 Depression Screening Completed 04/14/2025 HIB Vaccines Aged Out No longer eligi ble based on patient's age to complete this topic HPV Vaccines Aged Out No longer eligi ble based on patient's age to complete this topic IPV Vaccines Aged Out No longer eligi ble based on patient's age to complete this topic MMR Vaccines Aged Out No longer eligi ble based on patient's age to complete this topic Meningococcal ACWY Vaccine Aged Out N o longer eligible based on patient's age to complete this topic Meningococcal B Vaccine Aged Out No l onger eligible based on patient's age to complete this topic RSV Immunization Patients Under 20 months Aged Out No longer eligible based on patient's age to complete this topic Varicella Vaccines Aged Out No longer eligible based on patient's age to complete this topic Goals Goal Patient Goal Type Associated Problems Recent Progress Patient-Stated? 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 officer volume breakdown reduced by X% by week 8 Care Plan Impaired Tissue Isabella Saez RN Wound volume breakdown reduced by X% by week 12 Care Plan Impaired Tissue Isabella Saez RN Quit using tobacco (cigarettes, smokeless, etc) Care Plan Education needed on impact of smoking on wound Isabella Saez RN Reduce tobacco use (cigarettes, smokeless, etc) Care Plan Education needed on impact of smoking on wound Isabella Saez RN Decrease Wound Volume by X% by date (in notes) Care Plan Education needed on impact of smoking on wound Isabella Saez RN Patient and Caregiver Understand Wound Care Education Care Plan Education needed related to ulceration/compr omised skin integrity. Isabella Saez RN Additional Health Concerns Active Problems Noted Date Diagnosed Date Impaired Tissue 04/14/2025 Education needed on impact of smoking on wound 0 04/14/2025 Education needed related to ulceration/compromised skin integrity. 04/14/[address] [place] [address] [employer] Member Subscriber Plan / Payer (Ef fective 2020-Present) Name:ALEX ERYES Relation to Subscriber:Spouse Name:ALEX REYES Date of :1973 (Home) Address: [address] [place] [id number] Payer ID:[id number] Group ID:[id number] Type:Not on file Address: [place] [address] [address] [id number] [facility] MEDICAID [facility] MEDICARE Member Subscriber Plan / Payer (Ef fective 2020-Present) Name:ALEX REYES Relation to Subscriber:Self Name:Alex Reyes Payer ID:[id number] Group ID:[id number] Type:Not on file Address: [address] [place] [phone] Advance Directives Documents on File Type Date Recorded 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
--- OUTSIDE RECORDS SUMMARY | 2025-07-17 08:51 | XMS_ITS ---
Care Plan Created on: July 17, 2025 Cass Reyes : 1975 Sex: Female Author Organization [facility] Address [address] [place] [address] Phone Care Team Providers Care Gastroenterology Professor Name Role Phone Andreina Moore MD Primary Care Provider [phone] Active Problems Problem Noted Date Diagnosed Date Callus of foot 04/14/2025 Type 2 diabetes mellitus wit h other skin complications (CMS/HCC V24, CMS/HCC V28) 04/14/2025 Pressure injury of right thi gh, stage 2 (CMS/HCC V24, CMS/HCC V28) 04/14/2025 Pressure ulcer of left butto ck, stage 2 (CMS/HCC V24, CMS/HCC V28) 04/14/2025 Dermatitis associated with moisture 04/14/2025 Additional Health Concerns Active Problems Noted Date Diagnosed Date Impaired Tissue 04/14/2025 Education needed on impact of smoking on wound 0 04/14/2025 Education needed related to ulceration/compromised skin integrity. 04/14/2025 Goals Goal Patient Goal Type Associated Problems Recent Progress Patient-Stated? Author Decrease Wound Volume by X% by date (in notes) Care Plan Impaired Tissue Isabella Saez RN Patient and Caregiver Understand Wound Care Education Care Plan Impaired Tissue Isabella Saez RN Wound volume breakdown reduced by X% by week 4 Care Plan Impaired Tissue Isabella Saez RN [...] needed on impact of smoking on wound No Isabella Beal RN Decrease Wound Volume by X% by date (in notes) Care Plan Education needed on impact of smoking on wound No Isabella Beal RN Patient and Caregiver Understand Wound Care Education Care Plan Education needed related to ulceration/compr omised skin integrity. No Isabella Beal RN Interventions Care Plan Interventions Intervention Entry Date Outcome Provide caregiver with wound care procedure information 04/14/2025 Educate caregiver on proper wound care procedures 04/14/2025 Give provider list of wound care supplies 04/14/2025 Refill wound care supplies 04/14/2025 Send Wound Care Supplies 04/14/2025 Give provider list of wound care supplies 04/14/2025 Refill wound care supplies 04/14/2025 Send Wound Care Supplies 04/14/2025 Provide caregiver with wound care procedure information 04/14/2025 Educate caregiver on proper wound care procedures 04/14/2025 Document patient eligibility for HBO 04/14/2025 Assess patient for HBO treatment 04/14/2025 Record wound depth 04/14/2025 Record total wound area 04/14/2025 Measure wound progress 04/14/2025 Create an action plan identifying patient strengths and supports 04/14/2025 Establish quit date with patient 04/14/2025 Discuss prior cessation attempts 04/14/2025 Discuss preferred method of cessation and plan 04/14/2025 Discuss barriers to smoking cessation 04/14/2025 Discuss smoking status with patient 04/14/2025 Create an action plan identifying patient strengths and supports 04/14/2025 Establish quit date with patient 04/14/2025 Discuss prior cessation attempts 04/14/2025 Discuss preferred method of cessation and plan 04/14/2025 Discuss barriers to smoking cessation 04/14/2025 Discuss smoking status with patient 04/14/2025 Provide caregiver with wound care procedure information 04/14/2025 Educate caregiver on proper wound care procedures 04/14/2025 Document patient eligibility for HBO 04/14/2025 Assess patient for HBO treatment 04/14/2025 Record wound depth 04/14/2025 Record total wound area 04/14/2025 Measure wound progress 04/14/2025 Provide caregiver with wound care procedure information 04/14/2025 Educate caregiver on proper wound care procedures 04/14/2025 Document patient eligibility for HBO 04/14/2025 Assess patient for HBO treatment 04/14/2025 Record wound depth 04/14/2025 Record total wound area 04/14/2025 Measure wound progress 04/14/2025 Provide caregiver with wound care procedure information 04/14/2025 Educate caregiver on proper wound care procedures 04/14/2025 Document patient eligibility for HBO 04/14/2025 Assess patient for HBO treatment 04/14/2025 Record wound depth 04/14/2025 Record total wound area 04/14/2025 Measure wound progress 04/14/2025 Provide caregiver with wound care procedure information 04/14/2025 Educate caregiver on proper wound care procedures 04/14/2025 Give provider list of wound care supplies 04/14/2025 Refill wound care supplies 04/14/2025 Give provider list of wound care supplies 04/14/2025 Refill wound care supplies 04/14/2025 Provide caregiver with wound care procedure information 04/14/2025 Educate caregiver on proper wound care procedures 04/14/2025 Record wound depth 04/14/2025 Record total wound area 04/14/2025 Measure wound progress 04/14/2025 Related Goals and Interventions Goal Associated Intervent ions Decrease Wound Volume by X% by date (in notes) Give provider list of wound care supplie s; Refill wound care supplies; Provide caregiver with wound care procedure information; Educate caregiver on proper wound care procedures; Record wound depth; Record total wound area; Measure wound progress Patient and Caregiver Unders tand Wound Care Education Provide caregiver with wound care proced ure information; Educate caregiver on proper wound care procedures; Give provider list of wound care supplies; Refill wound care supplies Wound volume breakdown reduc ed by X% by week 4 Provide caregiver with wound care proced ure information; Educate caregiver on proper wound care procedures; Document patient eligibility for HBO; Assess patient for HBO treatment; Record wound depth; Record total wound area; Measure wound progress Wound volume breakdown reduc ed by X% by week 8 Provide caregiver with wound care proced ure information; Educate caregiver on proper wound care procedures; Document patient eligibility for HBO; Assess patient for HBO treatment; Record wound depth; Record total wound area; Measure wound progress Wound volume breakdown reduc ed by X% by week 12 Provide caregiver with wound care proced ure information; Educate caregiver on proper wound care procedures; Document patient eligibility for HBO; Assess patient for HBO treatment; Record wound depth; Record total wound area; Measure wound progress Quit using tobacco (cigarett es, smokeless, etc) Create an action plan identifying patien t strengths and supports; Establish quit date with patient; Discuss prior cessation attempts; Discuss preferred method of cessation and plan; Discuss barriers to smoking cessation; Discuss smoking status with patient Reduce tobacco use (cigarett es, smokeless, etc) Create an action plan identifying patien t strengths and supports; Establish quit date with patient; Discuss prior cessation attempts; Discuss preferred method of cessation and plan; Discuss barriers to smoking cessation; Discuss smoking status with patient Decrease Wound Volume by X% by date (in notes) Give provider list of wound care supplie s; Refill wound care supplies; Send Wound Care Supplies; Provide caregiver with wound care procedure information; Educate caregiver on proper wound care procedures; Document patient eligibility for HBO; Assess patient for HBO treatment; Record wound depth; Record total wound area; Measure wound progress Patient and Caregiver Unders tand Wound Care Education Provide caregiver with wound care proced ure information; Educate caregiver on proper wound care procedures; Give provider list of wound care supplies; Refill wound care supplies; Send Wound Care Supplies
--- OUTSIDE RECORDS SUMMARY | 2025-07-17 08:51 | XMS_ITS | Clinical Summary ---
Author Organization [facility] Address [address] [place] [address] Care Team Providers Care Crematory Operator Name Role Phone Brook Ramey PA-C Primary Care Provider [phone] Source Comments PLEASE NOTE, if this patient is a minor, it may be UNLAWFUL to discuss sensitive information that is contained in these records (such as FAMILY PLANNING, MENTAL HEALTH or SUBSTANCE ABUSE) with the minor patient's parent or other person without the patient's specific authorization.[facility] Medications amoxicillin (AMOXIL) 500 mg capsuleIndicatio ns:Tooth infection Take 1 Cap by mouth 3 (three) times daily 21 Cap 01/13/2020 Active Social History Tobacco Use Types Packs/Day Years Used Date Smoking Tobacco: Never Assessed Social Connections Answer Date Recorded Social Connections and Isolation 0 06/24/2020 Financial Resource Strain Answer Date R ecorded Financial Resource Strain 0 2019 Stress Answer Date Recorded Stress 0 06/24/2020 Physical Activity Answer Date Recorded Physical Activity 0 06/24/2020 Food Insecurity Answer Date Recorded Food 0 06/24/2020 Transportation Needs Answer Date Record ed Transportation 0 06/24/2020 Housing Stability Answer Date Recorded Housing 0 06/24/2020 Safety and Environment Answer Date Nirav rded Safety 0 06/24/2020 Utilities Answer Date Recorded Utilities 0 06/24/2020 Employment Answer Date Recorded Employment 0 06/24/2020 Comments Unknown Sex and Gender Information Value Date Recorded Sex Assigned at Not on file Legal Sex Female 10:30 AM PDT Gender Identity Not on file Sexual Orientation Not on file Plan of Treatment Health Maintenance Due Date Last Done Comments Anxiety Screening 1975 Diabetes Screening 1973 HPV Screening 1973 Hepatitis C Screening 1973 Lipid Screening 1973 Pap + HPV 1973 Tobacco Screening 1973 HIV Screening 1988 Hypertension Screening (#1) 1991 Medicare Annual Wellness Visit 1991 Imm-DTaP/Tdap/Td (1 - Tdap) 1992 Imm-Hepatitis B (1 of 3 - 19 + 3-dose series) 1992 Cervical Cancer Screening 1994 Pap Smear 1994 Breast Cancer Screening (Mammogram) 2013 CT Colonography 2018 Colonoscopy 2018 Colorectal Cancer Screening 2018 FIT/gFOBT 2018 Fecal DNA 2018 Flexible Sigmoidoscopy 2018 Imm-Pneumococcal 50+ (2 of 2 - PCV) 12/18/202310/14 Imm-Zoster, Recombinant (1 of 2) 2023 Alcohol and Drug Screen 10/22/2024 Depression Annual Screen 10/22/2024 [id number] ( season) 2025//2 021, 03/16/2021 Imm-Influenza (#1) 2025 06/11/2015, 09/09/2014 Cervical Ablation/Cold-Knife Conization Discontinued Cervical Cryotherapy Discontinued Colposcopy Discontinued Endometrial Biopsy Discontinued Excision/Leep Discontinued HPV Genotyping Discontinued Vaginal Pap Discontinued Vulvoscopy Discontinued Insurance [employer] MEDICAID [facility] Care Teams Crematory Operator Relationship Specialty Start Date End Date Brook Ramey PA-C [address] [place] [id number] PCP - General Internal Medicine 01/08/23
--- OUTSIDE RECORDS SUMMARY | 2025-07-17 08:52 | XMS_ITS | Clinical Summary ---
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 Not on michelle e 07/18/2023 Are you concerned about learning? Not on file 07/18/2023 No 07/18/2023 No 07/18/2023 Digital Access Answer Date Recorded No 07/18/2023 No 07/18/2023 Reliable internet access at home? Not on file 07/18/2023 Device with a working camera? Not on file Intimate Partner Violence Answer Date R ecorded Are you denied basic needs s uch as food, clothing, or medical care? No 02/23/2024 In the past 12 months have y ou been in a relationship with a person who hurts, threatens, or tries to control you? No 02/23/2024 Are you denied basic needs s uch as food, clothing, or medical care? No 02/23/2024 In the past 12 months have y ou been in a relationship with a person who hurts, threatens, or tries to control you? No 02/23/2024 Comments Unknown Sex and Gender Information Value Date Recorded Sex Assigned at Not on file Legal Sex Female 12:57 PM EDT Gender Identity Not on file Sexual Orientation Not on file Last Filed Vital Signs Vital Sign Reading Time Taken Comments Blood Pressure 135/66 02/23/2024 9:55 PM EDT Pulse 91 02/23/2024 9:55 PM EDT Temperature 36.5 C (97.7 F) 02/23/2024 9:55 PM EDT Respiratory Rate 20 02/23/2024 9:55 PM EDT Oxygen Saturation 97% 02/23/2024 9:55 PM EDT Inhaled Oxygen Concentration - - Weight 158.8 kg (350 lb) 02/23/2024 9:55 PM EDT Height 167.6 cm (5' 6 ) 02/23/2024 9:55 PM EDT Body Mass Index 56.49 02/23/2024 9:55 PM EDT Plan of Treatment Upcoming Encounters Date Type Department Care Team (Late st Contact Info) Description 08/06/2025 11:00 AM EDT Office Visit [facility] [address] [place] [address] Magali Andino MD [address] [facility], [address] [place] [address] [email or web address] Health Maintenance Due Date Last Done Comments Adult Td,Tdap Booster 1973 DEPRESSION SCREENING 1985 SMOKING Hx and SMOKELESS TOBACCO SCREENING 1986 HEPATITIS C SCREENING 1991 HIV ONE-TIME SCREENING (18-6 5 YEARS) 1991 PAP SMEAR 1994 MAMMOGRAM 2013 COLOGUARD 2018 COLONOSCOPY 2018 COLORECTAL CANCER SCREENING 2018 FIT TEST 2018 FOBT 2018 SIGMOIDOSCOPY 2018 VIRTUAL COLONOSCOPY 2018 PNEUMOCOCCAL VACCINES (50+ years) (1 of 1 - PCV) 2023 ZOSTER VACCINES (1 of 2) 2023 INFLUENZA VACCINE (#1) 2025 COVID-19 VACCINE (1 - 2023-2 5 season) 2025 SCREENING FOR DIABETES 02/11/2027 , 02/12/2024 LIPID PANEL 01/13/2029 01/14/2024, 12/24/2023 HEPATITIS A VACCINES Aged Out No long er eligible based on patient's age to complete this topic HIB VACCINES Aged Out No longer eligi ble based on patient's age to complete this topic MENINGOCOCCAL VACCINES (ACWY) Aged Out No longer eligible based on patient's age to complete this topic MENINGOCOCCAL VACCINES (B) Aged Out N o longer eligible based on patient's age to complete this topic Medical Devices Not on file Procedures Procedure Name Priority Date/Time Associated Diagnosis Comments LIPID PANEL Routine 01/14/2024 12:45 PM EDT Screening for unspecified condition from Last 3 Months or Most Recently Relevant to Health Maintenance Results * (ABNORMAL) Lipid panel (01/14/2024 12:45 PM EDT) HDL 59 mg/dL [facility] Comment: Interpretation <40 mg/dL: Low HDL cholesterol (major risk factor for CHD) Greater than or equal to 60 mg/dL: High HDL cholesterol ( negative risk factor for CHD) HDL - cholesterol is affected by a number of factors, e.g. smoking, excerise, hormones, sex and age. CHOLESTEROL 160 0 - 240 mg/dL [facility] TRIGLYCERIDES 117 30 - 160 mg/dL [facility] LDL 78 50 - 129 mg/dL [facility] Comment: LDL levels in terms of risk for coronary heart disease: <100 mg/dL: Optimal 100-129 mg/dL: Near or above optimal 130-159 mg/dL: Borderline high 160-189 mg/dL: High >190 mg/dL: Very High CARDIAC RISK RATIO 2.7(L) 3.3 - 4.4 [facility] Blood 01/14/2024 12:4 5 PM EDT 01/14/2024 2:57 PM EDT us Toño Warren MD LAB BLOOD ORDERABLES Final Result [facility] [address] [place] [address] from Last 3 Months or Most Recently Relevant to Health Maintenance Insurance [facility] ONE CARE MEDICARE REPLACEMENT CARE MEDICARE REPLACEMENT [facility] CARE MEDICARE REPLACEMENT [facility] ONE CARE MEDICARE REPLACEMENT CARE MEDICARE REPLACEMENT Advance Directives For more information, please contact: [phone] (9AM - 5PM [facility] Documents on File Type Date Recorded Patient A Auxiliary Shelly DEUTSCH 02/25/2024 12:56 PM Care Teams Mechanical Maintenance Worker Relationship Specialty Start Date End Date Pcp, Unknown PCP - General 02/23/24 Additional Source Comments The information contained in this document represents components of the legal health record. It is not the complete legal health record.Located Within [facility]
--- OUTSIDE RECORDS SUMMARY | 2025-07-17 08:52 | XMS_ITS | Continuity of Care Document ---
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 Chief Engineer Waterworks Name Role Phone Austin Nicole MD Primary Care Provider [phone] Encounters Date Type Department Care Team Description 01/30/2025 3:45 PM EDT Office Visit [facility]rology [address] [place] [address] Saniya Rubio MD Muscle spasms of lower extremity (Primary Dx); Diabetic polyneuropathy associated with type 2 diabetes mellitus (HCC) 01/22/2025 2:20 PM EDT Office Visit [facility] [address] [place] [address] [place] Man: Ramiro Del Valle MD Chronic pain of both knees (Primary Dx); Chronic pain syndrome; Morbid obesity with BMI of 50.0-59.9, adult ([facility]) 07/18/2024 1:04 PM EDT - 07/18/2024 11:59 PM EDT Hospital Encounter [facility] Xray [address] [place] [address] Discharge Disposition: Home or Self Care () 07/18/2024 1:45 PM EDT Follow-Up [facility] [address] [place] [address] Munira Rose NP Bilateral hip pain (Primary Dx); Bilateral pain of leg and foot 07/11/2024 Telephone [facility] [address] [place] [address] Telephone Intake, Staff PAC_Patient Request Call YumikoRozinaMilton 07/10/2024 10:00 AM EDT Office Visit [facility] [address] [place] [address] Munira Rose NP Bilateral hip pain (Primary Dx) Allergies Active Allergy Reactions Criticality Noted Date Comments Acetaminophen Flushing 07/10/2024 Medications atorvastatin (LIPITOR) 80 mg tablet 4 Active Eliquis 5 mg tablet [address] (CYMBALTA) 20 mg capsule [address] (CYMBALTA) 30 mg capsule [address] (PROTONIX) 40 mg tablet 4 Active prazosin (MINIPRESS) 1 mg capsule 4 Active senna 8.6 mg tablet SMARTSI Tablet(s) By Mouth Every Night PRN 4 Active tiZANidine (ZANAFLEX) 2 mg tablet SMARTSI Tablet(s) By Mouth 3 Times Daily PRN 4 Active tiZANidine (ZANAFLEX) 4 mg tablet 4 Active HumaLOG U-100 Insulin 100 unit/mL injection SMARTSIG:SUB-Q 4 Active traZODone (DESYREL) 50 mg tablet 4 Active Ozempic 0.25 mg or 0.5 mg (2 mg/3 mL) pen injector 4 Active torsemide (DEMADEX) 20 mg tablet 4 Active albuterol 2.5 mg/3 mL (0.083%) nebulizer solution Inhale 1 vial via nebulizer every 6 hours as needed for wheezing or shortness of breath. Active cyclobenzaprine (FLEXERIL) 10 mg tablet Take 10 mg by mouth 3 times a day as needed for muscle spasms. Active QUEtiapine (SEROquel) 100 mg tablet Take 100 mg by mouth nightly. Active pregabalin (Lyrica) 200 mg capsule Take 200 mg by mouth 3 times a day. Active lidocaine (LIDODERM) 5% patch Apply 1 patch topically to the affected area once a day. Remove and discard patch within 12 hours or as directed. Active Active Problems Problem Noted Date Diagnosed Date Muscle spasms of lower extremity 01/30/2025 Diabetic polyneuropathy asso ciated with type 2 diabetes mellitus 01/30/2025 Family History Medical History Relation Name Comments Alcohol abuse Father Cancer Father Diabetes Mother Lupus Mother Relation Name Status Comments Father Mother Alive Social History Smoking Status as of 07/17/2025 Tobacco Use Types Packs/Day Years Used Date Smoking Tobacco: Never Assessed Sex and Gender Information Value Date Recorded Sex Assigned at Female 07/21/2024 2:20 PM EDT Legal Sex Female 10:17 AM EDT Gender Identity Female 01/16/2025 10:26 AM EDT Sexual Orientation Straight 01/16/2025 10 :26 AM EDT Last Filed Vital Signs Vital Sign Reading Time Taken Comments Blood Pressure 121/81 01/22/2025 2:24 PM EDT Pulse 83 01/22/2025 2:24 PM EDT Temperature 36.9 C (98.4 F) 01/22/2025 2:24 PM EDT Respiratory Rate - - Oxygen Saturation - - Inhaled Oxygen Concentration - - Weight 166 kg (366 lb) 01/22/2025 2:24 PM EDT Height 167.6 cm (5' 6 ) 01/22/2025 2:24 PM EDT Body Mass Index 59.07 01/22/2025 2:24 PM EDT Plan of Treatment Not on file Procedures * Due to [employer] law, this organization might not be sharing negative HIV tests. Procedure Name Priority Date/Time Associated Diagnosis Comments NH ARTHROCENTESIS ASPIR&/INJ MAJOR JT/BURSA W/O US Routine 01/22/2025 2:20 PM EDT Chronic pain of both knees XR HIPS BILATERAL 5+ VW W PELVIS Routine 07/18/2024 1:20 PM EDT Bilateral hip pain Results * Due to [employer] law, this organization might not be sharing negative HIV tests. * NH ARTHROCENTESIS ASPIR&/INJ MAJOR JT/BURSA W/O US (01/22/2025 2:20 PM EDT) Narrative Ramiro Martinez MD - 01/22/2025 2:20 PM EDT Ramiro Martinez MD 01/22/2025 5:46 PM Large Joint Arthrocentesis: L knee, R knee Date/Time: 01/22/2025 2:20 PM Performed by: Ramiro Martinez MD Authorized by: Ramiro Martinez MD Consent: Patient identity confirmed: Name and with patient and Name and MRN on the patient's armband Verbal consent obtained: Yes Written consent obtained: Yes Risk and benefits discussed: Yes Written informed consent was obtained from the patient. Patient states understanding of procedure being performed: Yes Patient's understanding of procedure matches consent: Yes [place] Protocol: Procedure consent matches procedure scheduled: Yes All relevant documents/tests are correctly identified, labeled, and matched to patient: Yes Relevant tests/ Imaging studies available/reviewed: Yes Correct site marked: Yes Required blood products, implants, devices and special equipment available: Yes Immediately prior to the procedure a time out was called: Yes An attending physician was present for the procedure OR the procedure was performed by an Advanced Practice Provider: Yes Procedure Details: Location: knee - L knee and R knee Left Topical Anesthetic: ethyl chloride (cold spray) Syringe Size:5 mL Needle size: 25 G Approach: anterolateral Medications administered: 80 mg methylPREDNISolone acetate 80 mg/mL Right Topical Anesthetic: ethyl chloride (cold spray) Syringe Size:5 mL Needle size: 25 G Approach: lateral Dressing: Band-Aid Post-procedure Details: Patient tolerance: patient tolerated the procedure well with no immediate complications Instructions: post-procedure instructions were reviewed Discharge: patient discharged from clinic in stable condition Ramiro Martinez MD IN CLINIC/BEDSIDE ORDERAB LES Final Result * XR Hips Bilateral 5+ vw W Pelvis (07/18/2024 1:20 PM EDT) Anatomical Region Laterality Modality Body, Pelvis, Hip Bilateral Computed Radio graphy 07/18/2024 5:29 PM EDT Impressions 07/18/2024 5:31 PM EDT Pelvis AP view bilateral hips AP and lateral views. Moderate generalized osteopenia. No acute fractures dislocations particularly at the hip joints. Mild to moderate degenerative changes of the right hip and probable mild degenerative changes left hip. Degenerative changes pubic symphysis SI joints obscured. No old or recent fractures dislocations are identified particularly within the hip joints. No calcific tendinosis. If this radiology report contains a blank impression section, it is an incomplete radiology report. Please contact the interpreting radiologist or applicable radiology division as soon as possible to obtain the completed interpretation. Workstation ID: [id number] Narrative 07/18/2024 5:31 PM EDT COMPARISON: There are no prior studies available for comparison at this time. FINDINGS AND Resulting Agency Comment [id number] Procedure Note Giselle Van MD - 07/18/2024 COMPARISON: There are no prior studies available for comparison at thistime. FINDINGS AND IMPRESSION: Pelvis AP view bilateral hips AP and lateral views. Moderate generalized osteopenia. No acute fractures dislocationsparticularly at the hip joints. Mild to moderate degenerative changes of the right hip and probable milddegenerative changes left hip. Degenerative changes pubic symphysis SI joints obscured. No old or recent fractures dislocations are identified particularly withinthe hip joints. No calcific tendinosis. If this radiology report contains a blank impression section, it is anincomplete radiology report. Please contact the interpreting radiologistor applicable radiology division as soon as possible to obtain thecompleted interpretation. Workstation ID: [id number] us Munira Rose CAR TOP BOLTER IMG XR PROCEDURES Final Resu lt Visit Diagnoses Diagnosis Start Date Bilateral hip pain Pain in joint, pelvic region and thigh 07/10/2024 Bilateral hip pain Pain in joint, pelvic region and thigh 07/18/2024 Bilateral pain of leg and foot 07/18/2024 Chronic pain of both knees 01/22/2025 Chronic pain syndrome 01/22/2025 Morbid obesity with BMI of 50.0-59.9, adult (HCC) 01/22/2025 Muscle spasms of lower extremity 01/30/2025 Diabetic polyneuropathy associated with type 2 diabetes mellitus (HCC) 01/30/2025 Care Teams Chief Engineer Waterworks Relationship Specialty Start Date End Date Austin Nicole MD [address] [place] [id number] PCP - General Internal Medicine 06/20/24
== END 2025-07-17 09:22 | disposition home or self-care (01) ==
LOC: HO.HPODS 08:32
PROVIDERS: PCP Internal Medicine; Visit Provider Student in an Organized Health Care Education/Training Program
DX: R29.898 Other symptoms and signs involving the musculoskeletal system (principal); I63.9 Cerebral infarction, unspecified; R20.2 Paresthesia of skin; E11.9 Type 2 diabetes mellitus without complications; M72.2 Plantar fascial fibromatosis; M47.816 Spondylosis without myelopathy or radiculopathy, lumbar region; M79.7 Fibromyalgia; B35.1 Tinea unguium
CPT/HCPCS: 11721; 99204

== ENCOUNTER → 2025-07-17 08:32 | Outpatient (BNVA) | payer MEDICARE, MEDICAID, SELFPAY | PROVIDERS: PCP Internal Medicine; Visit Provider Student in an Organized Health Care Education/Training Program | DX: B35.1 Tinea unguium (principal); R29.898 Other symptoms and signs involving the musculoskeletal system; R20.2 Paresthesia of skin; M72.2 Plantar fascial fibromatosis; M47.816 Spondylosis without myelopathy or radiculopathy, lumbar region; M79.7 Fibromyalgia; E11.9 Type 2 diabetes mellitus without complications; Z86.73 Personal history of transient ischemic attack (TIA), and cerebral infarction without residual deficits; Z79.01 Long term (current) use of anticoagulants | CPT/HCPCS: 11721; 99202 ==

== ENCOUNTER → 2025-08-11 23:59 | Outpatient (BNV) | payer MEDICARE, MEDICAID, SELFPAY | PROVIDERS: PCP Internal Medicine; Visit Provider Internal Medicine | DX: E11.621 Type 2 diabetes mellitus with foot ulcer (principal); M79.7 Fibromyalgia; F31.89 Other bipolar disorder; J44.9 Chronic obstructive pulmonary disease, unspecified | CPT/HCPCS: G0179 ==

== ENCOUNTER 2025-08-12 08:09 | Outpatient (REF) | payer MEDICARE, MEDICAID, SELFPAY ==
--- NOTE | ~2025-08-12 | XR_ITS ---
Exam: X-ray, bilateral knees.2 view TECHNIQUE: AP and lateral views lower extremity joint, bilateral knees INDICATION: pain COMPARISON: None available. FINDINGS: RIGHT KNEE: Lateral is not optimal because is oblique. No joint effusion is identified. There is moderate narrowing of the medial joint space and mild to moderate narrowing of the lateral joint space. There are small marginal osteophytes. LEFT KNEE: Small amount joint fluid is visible. There is moderate narrowing of the mild joint space and mild narrowing of the lateral. There are tricompartmental marginal osteophytes. There is oblique irregularity in the proximal diaphysis of the fibula could be from a remote fracture. XR/XR Knee Pantera 3V IMPRESSION: Right knee: Moderate osteoarthritis Left knee: Moderate osteoarthritis Suspected healed proximal fibular diaphyseal fracture. Electronically signed by: Shahriar Tavarez MD 08/12/2025 03:03 PM EDT
== END 2025-08-12 08:10 | disposition home or self-care (01) ==
LOC: HO.HOSX 08:09
PROVIDERS: Visit Provider Physician Assistant
DX: M17.0 Bilateral primary osteoarthritis of knee (principal); E11.9 Type 2 diabetes mellitus without complications; Z79.4 Long term (current) use of insulin
CPT/HCPCS: 20610; 73562; 99212; J0665; J1100; J2003

== ENCOUNTER 2025-08-12 14:07 | Outpatient (AMB) | payer OTHER, SELFPAY ==
--- OUTSIDE RECORDS SUMMARY | 2025-08-06 11:55 | XMS_ITS | Encounter Summary ---
Author Organization [facility] Address [address] [place] [address] [place] [address] Phone Care Team Providers Care Applications Support Analyst Name Role Phone Magali Andino MD Primary Care Provider [phone] Encounter Details Date Type Department Care Team (Latest Contact Info) Description 08/06/2025 11:55 AM EDT - 08/06/2025 11:59 PM EDT Hospital Encounter [facility] [address] [place] [address] Magali Andino MD [address] [facility] [address] [place] [address] [email or web address] Discharge Disposition: Home or Self Care Social History Tobacco Use Types Packs/Day Years Used Date Smoking Tobacco: Some Days Cigarettes Smokeless Tobacco: Never Education Answer Date Recorded Are you interested [...] on file Sexual Orientation Not on file documented as of this encounter Medications at Time of Discharge atorvastatin (LIPITOR) 80 MG tablet Take 80 mg by mouth daily. baclofen (LIORESAL) 10 MG tablet Take 1 tablet (10 mg total) by mouth 3 (three) times a day. 90 tablet 1 08/06/2025 ELIQUIS 5 mg tablet Take 5 mg by mouth 2 (two) times a day. levothyroxine (SYNTHROID, LEVOTHROID) 50 MCG tablet Take 50 mcg by mouth every morning. metFORMIN (GLUCOPHAGE-XR) 500 MG 24 hr tabletIndications :Type 2 diabetes mellitus with hyperglycemia, without long-term current use of insulin Take 1 tablet (500 mg total) by mouth daily with dinner. 90 tablet 1 08/06/2025 pregabalin (LYRICA) 150 MG capsule Take 150 mg by mouth 3 (three) times a day. QUEtiapine (SEROQUEL) 25 MG tablet Take 25 mg by mouth nightly at bedtime. SENNA 8.6 mg tablet Take 2 tablets by mouth daily. tiZANidine (ZANAFLEX) 4 MG capsule Take 4 mg by mouth 3 (three) times a day. traZODone (DESYREL) 50 MG tablet Take 50 mg by mouth nightly at bedtime. documented as of this encounter Plan of Treatment Upcoming Encounters Date Type Department Care Team (Late st Contact Info) Description 09/16/2025 11:30 AM EST Office Visit [facility] Medicine [address] [place] [address] Magali Andino MD [address] [facility], [address] [place] [address] [email or web address] documented as of this encounter Procedures Procedure Name Priority Date/Time Associated Diagnosis Comments COMPREHENSIVE METABOLIC PANEL Routine 08/06/2025 11:56 AM EDT Screening for condition CBC AND DIFFERENTIAL Routine 08/06/2025 11:56 AM EDT Screening for condition RHEUMATOID FACTOR Routine 08/06/2025 11: 56 AM EDT Rheumatoid arthritis of both hips, unspecified whether rheumatoid factor present TSH Routine 08/06/2025 11:56 AM EDT Hypothyroidism, unspecified type MAGNESIUM Routine 08/06/2025 11:56 AM EDT Lymphedema HEMOGLOBIN A1C Routine 08/06/2025 11:56 AM EDT Class 1 obesity due to excess calories without serious comorbidity with body mass index (BMI) of 30.0 to 30.9 in adult Type 2 diabetes mellitus with hyperglycemia, without long-term current use of insulin LIPID PANEL Routine 08/06/2025 11:56 AM EDT Class 1 obesity due to excess calories without serious comorbidity with body mass index (BMI) of 30.0 to 30.9 in adult documented in this encounter Results * (ABNORMAL) CBC and differential (08/06/2025 11:56 AM EDT) WBC 6.63 4.00 - 11.00 K/uL [facility] RBC 6.05(H) 4.00 - 5.20 M/uL [facility] HGB 14.8 12.0 - 16.0 g/dL [facility] HCT 48.4(H) 36.0 - 46.0 % [facility] PLT 507(H) 150 - 450 K/uL [facility] MCV 80.0 80.0 - 100.0 fL [facility] MCH 24.5(L) 27.0 - 31.0 pg [facility] MCHC 30.6(L) 32.0 - 36.0 g/dL [facility] RDW 17.3(H) 11.5 - 14.5 % [facility] MPV 10.6 8.4 - 12.0 fL [facility] NRBC 0.00 0.00 /100 WBCs [facility] ABSOLUTE NRBC 0.00 0.00 K/uL [facility] DIFF METHOD Auto [facility] NEUTS 58.2 48.0 - 76.0 % [facility] LYMPHS 26.5 18.0 - 41.0 % [facility] MONOS 11.6(H) 4.0 - 11.0 % [facility] EOS 2.7 0.0 - 5.0 % [facility] BASOS 0.5 0.0 - 1.5 % [facility] Granulocytes, immature (%) 0.5 0.0 - 0.9 % [facility] ABSOLUTE NEUTS 3.86 1.92 - 7.60 K/uL [facility] ABSOLUTE LYMPHS 1.76 0.72 - 4.10 K/uL [facility] ABSOLUTE MONOS 0.77 0.16 - 1.10 K/uL [facility] ABSOLUTE EOS 0.18 0.00 - 0.50 K/uL [facility] ABSOLUTE BASOS 0.03 0.00 - 0.15 K/uL [facility] Granulocytes, immature 0.03 0.00 - 0.09 K/uL [facility] Blood 08/06/2025 11:5 6 AM EDT 08/06/2025 11:57 AM EDT us Magali Andino MD LAB BLOOD ORDERABLES Final Result Performing Organization Address City/State/[facility] Co de Phone Number [address] [address] * (ABNORMAL) Comprehensive metabolic panel (08/06/2025 11:56 AM EDT) SODIUM 139 133 - 146 mmol/L [facility] POTASSIUM 4.3 3.3 - 5.1 mmol/L [facility] CHLORIDE 100 96 - 108 mmol/L [facility] CO2 27 21 - 35 mmol/L [facility] BUN 11 6 - 19 mg/dL [facility] CREATININE 0.70 0.5 - 1.5 mg/dL [facility] GLUCOSE 99 70 - 99 mg/dL [facility] ALBUMIN 3.8(L) 3.9 - 4.8 g/dL [facility] TOTAL PROTEIN 7.3 6.5 - 8.0 g/dL [facility] CALCIUM 9.4 8.4 - 10.3 mg/dL [facility] ALKALINE PHOSPHATASE 81 39 - 117 U/L [facility] TOTAL BILIRUBIN 0.6 0.0 - 1.2 mg/dL [facility] AST 27 0 - 37 U/L [facility] ALT 15 0 - 40 U/L [facility] GLOBULIN 3.5 1 - 4.8 g/dL [facility] EGFR 105 >59 mL/min/1.7 3m2 [facility] Comment:Estimated glomerular filtration rate calculated using the CKD-EPI refit equation. ANION GAP 16 10 - 20 mmol/L [facility] Blood 08/06/2025 11:5 6 AM EDT 08/06/2025 11:57 AM EDT Magali Andino MD LAB BLOOD ORDERABLES Final Result [facility] [address] [place] [address] * (ABNORMAL) Lipid panel (08/06/2025 11:56 AM EDT) HDL 48 mg/dL [facility] Comment: Interpretation <40 mg/dL: Low HDL cholesterol (major risk factor for CHD) Greater than or equal to 60 mg/dL: High HDL cholesterol ( negative risk factor for CHD) HDL - cholesterol is affected by a number of factors, e.g. smoking, excerise, hormones, sex and age. CHOLESTEROL 113 0 - 240 mg/dL [facility] TRIGLYCERIDES 97 30 - 160 mg/dL [facility] LDL 46(L) 50 - 129 mg/dL [facility] Comment: LDL levels in terms of risk for coronary heart disease: <100 mg/dL: Optimal 100-129 mg/dL: Near or above optimal 130-159 mg/dL: Borderline high 160-189 mg/dL: High >190 mg/dL: Very High CARDIAC RISK RATIO 2.4(L) 3.3 - 4.4 [facility] Blood 08/06/2025 11:5 6 AM EDT 08/06/2025 11:57 AM EDT us Magali Andino MD LAB BLOOD ORDERABLES Final Result Performing Organization Address [facility]/ZIP Co de Phone Number [address] [address] * Hemoglobin A1c (08/06/2025 11:56 AM EDT) HEMOGLOBIN A1C 5.8 4.3 - 5.8 % [facility] Blood 08/06/2025 11:5 6 AM EDT 08/06/2025 11:57 AM EDT Result Doni Andino MD LAB BLOOD ORDERABLES Final Result Performing Organization Address [facility] Co de Phone Number [address] [address] * TSH (08/06/2025 11:56 AM EDT) TSH 3.66 0.27 - 4.20 uIU/mL [facility] Blood 08/06/2025 11:5 6 AM EDT 08/06/2025 11:57 AM EDT us Magali Andino MD LAB BLOOD ORDERABLES Final Result Performing Organization Address City/[facility]/ZIP Co de Phone Number [address] [address] * Magnesium (08/06/2025 11:56 AM EDT) MAGNESIUM 2.1 1.6 - 2.6 mg/dL [facility] Blood 08/06/2025 11:5 6 AM EDT 08/06/2025 11:57 AM EDT us Magali Andino MD LAB BLOOD ORDERABLES Final Result [address] [address] * Rheumatoid factor (08/06/2025 11:56 AM EDT) RHEUMATOID FACTOR <10.0 0.0 - 14.0 IU/ml [facility] Blood 08/06/2025 11:5 6 AM EDT 08/06/2025 11:57 AM EDT Magali Andino MD LAB BLOOD ORDERABLES Final Result Performing Organization Address City/[facility]/ZIP Co de Phone Number [address] [phone] documented in this encounter Visit Diagnoses Diagnosis Rheumatoid arthritis of both hips, unspecified whether rheumatoid factor present Lymphedema Other noninfectious lymphedema Hypothyroidism, unspecified type Class 1 obesity due to excess calories without serious comorbidity with body mass index (BMI) of 30.0 to 30.9 in adult Type 2 diabetes mellitus with hyperglycemia, without long-term current use of insulin Screening for condition Screening for unspecified condition documented in this encounter Care Teams Applications Support Analyst Relationship Specialty Start Date End Date Magali Andino MD [address] [place] [address] [address] [place] [address] [email or web address] PCP - General Family Medicine 08/06/25 documented as of this encounter Additional Source Comments The information contained in this document represents components of the legal health record. It is not the complete legal health record.[facility]
--- NOTE | 2025-08-12 14:22 | A.OFFVIS_ITS ---
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 PCP referred. physical therapy. Patient reports ongoing pain for many years. She has tried injections in the past which gave her relief. Patient also had tried physical therapy with no relief. Patient also mentions that when they were transporting her to the office her left great toe banged the door way which made a open wound. Allergies ibuprofen Allergy (Severe, Verified 08/12/25 14:43) Swelling acetaminophen (Tylenol) Adverse Reaction (Unknown, Verified 08/12/25 14:43) kidney problems Medication List - Last Reconciled 08/16/25 by Savi Ramirez PA-C albuterol sulfate 90 mcg/actuation 2 puffs inhalation Q4-6H PRN albuterol sulfate 2.5 mg (3 mL) inhalation Q6H PRN 30 days ammonium lactate 12% (AmLactin) 1 appl topical BID apixaban (Eliquis) 5 mg PO BID atorvastatin 80 mg PO DAILY [Bilateral AFO for positioning As directed] blood sugar diagnostic (FreeStyle Lite Strips) test blood sugar once a day blood-glucose meter (FreeStyle Lite Meter kit) As directed to test blood sugars ciclopirox 8% 1 appl topical BEDTIME 4 weeks comp.stocking,thigh,long,x-lrg 20-30mmHg pressure diclofenac sodium 1% 4 grams topical TID [disposable bed pad Uses 5/day] [disposable diapers with tabs As directed] [disposable gloves For incontinence and personal care] duloxetine 20 mg PO BID [Elevated toilet seat-WITHOUT arms As directed] heating pads As directed lancets (Safety Lancets) test blood sugar once a day pantoprazole 40 mg (2 x 20 mg) PO DAILY prazosin 1 mg PO BEDTIME pregabalin 150 mg PO TID [Purewick catheters As directed] [purewick urine collection system Pt is bedbound with urinary incontinence ] quetiapine 100 mg PO DAILY quetiapine (Seroquel) 25 mg PO BEDTIME sennosides (senna) 17.2 mg (2 x 8.6 mg) PO BEDTIME tirzepatide (Mounjaro) 5 mg (0.5 mL) subcut QWEEK tizanidine 4 mg PO Q8H PRN torsemide 20 mg PO DAILY trazodone 50 mg PO BEDTIME [waist high compression stockings As directed 20-30mm] [washable bed pads As directed] [wipes uses 8/day] zinc oxide 20% topical 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 She states for the last 3 years she has been primarily wheelchair bound and has to use a alia to transport. She states she is unable to walk due to pain and weakness in the knees and she have severe ankle OA. She does have PT coming in to work with her at the end of the month. She states she has injection in the knees once before, Sep 2024. [facility] Medical History (Updated 08/16/25 @ 21:49 by Savi Ramirez PA-C) Shoulder pain, right Venous insufficiency of both lower extremities ADHD Hypothyroidism Fibromyalgia Insomnia Morbid obesity Callus of foot Diabetes type 2, controlled Anxiety Depression Hx of kidney disease Bronchitis Chronic GERD Surgical History Hx of foot surgery Hx of cholecystectomy Hx of section Family History Father Substance use disorder Mother HTN (hypertension) Asthma Diabetes mellitus Substance use disorder Brother No problems noted. Brother Substance use disorder Son No problems noted. Daughter No problems noted. Daughter No problems noted. Daughter No problems noted. Social History Housing: Apartment Are you a primary manager managed care to a significant other at home: No Do you presently have visiting nurse or other home services: No Alcohol intake: never Patient Tobacco Use Status: Current someday Tobacco user Cigarettes Per Day: 4 Years Smoked: 30+ e-Cigarette/Vaping Use: Never Used Second Hand Smoke Exposure: No Substance Use Type: Marijuana service: No Current occupational status: disabled Current occupation: Rt handed Cognitive needs: No Hearing needs: No Vision needs: Yes Review of Systems Const All systems reviewed & are unremarkable except as noted in HPI and below Physical Exam Const General: cooperative and no acute distress Orientation/consciousness: patient oriented x3 Resp Effort & Inspection: normal respiratory effort and able to speak in complete sentences Cardio Peripheral pulses: Peripheral pulses 2+ throughout Neuro General: patient oriented x3 Extrem Other: Bilat knee TTP over the medial joint space and lateral patella. Unable to perform ROM due to body habitus and patient in stretcher. Calf supple non tender. NVI. Patient does have a laceration on the left great toe from the EMT catching her foot on the door frame. Results Reviewed Results Reviewed: Xrays were obtained in the office today and personally reviewed by me of bilat knee show moderate PF OA Assessment & Plan Assessment & Plan (1) Diabetes type 2, controlled: Comment: A1C-5.5 on 03/05/13 Code(s): E11.9 - Type 2 diabetes mellitus without complications Category: Medical (2) Osteoarthritis of knees, bilateral: Code(s): M17.0 - Bilateral primary osteoarthritis of knee Category: Medical Plan We discussed options today, which include steroid injection. The patient did consent to move forward with the injection, which was tolerated well.? I recommended rest, ice and elevation and OTC antiinflammatories prn for discomfort. If symptoms persist over the next 6-8 weeks, they will contact our office, otherwise, prn We also discussed their diabetes and the effect the steroid can have on thier blood glucose levels; therefore, they will continue to monitor these very closely over the next 72 hours Orders: Orders XR Knee Pantera 3V 08/12/25 M25.561 - Pain in right knee, M25.562 - Pain in left knee Referrals Podiatry Referral E11.9 - Type 2 diabetes mellitus without complications, M19.079 - Primary osteoarthritis, unspecified ankle and foot Coding Level of Care Code Est Pt Level 3 (49484) Complex EM visit Add On G2211 Diagnoses Diabetes type 2, controlled E11.9 Osteoarthritis of knees, bilateral M17.0
--- OUTSIDE RECORDS SUMMARY | 2025-08-12 20:21 | XMS_ITS | Continuity of Care Document ---
Author Organization [facility] Address [address] [place] [address] Care Team Providers Care Production Material Handler Name Role Phone Austin Nicole MD Primary Care Provider [phone] Encounters Date Type Department Care Team Description 01/30/2025 3:45 PM EDT Office Visit [facility] [address] [place] [address] Saniya Rubio MD Muscle spasms of lower extremity (Primary Dx); Diabetic polyneuropathy associated with type 2 diabetes mellitus (HCC) 01/22/2025 2:20 PM EDT Office Visit [facility] [address] [place] [phone] Industrial Recruiter: Ramiro Del Valle MD Chronic pain of both knees (Primary Dx); Chronic pain syndrome; Morbid obesity with BMI of 50.0-59.9, adult ([facility]) 07/18/2024 1:04 PM EDT - 07/18/2024 11:59 PM EDT Hospital Encounter [facility] [address] [place] [address] Discharge Disposition: Home or Self Care () 07/18/2024 1:45 PM EDT Follow-Up [facility] [address] [place] [phone] Munira Rose NP Bilateral hip pain (Primary Dx); Bilateral pain of leg and foot 07/11/2024 Telephone [facility] [address] [place] [phone] Telephone Intake, Staff PAC_Patient Request Call YumikoRozinaMilton 07/10/2024 10:00 AM EDT Office Visit [facility] [address] [place] [phone] Munira Rose NP Bilateral hip pain (Primary [...] Alive Social History Smoking Status as of 08/12/2025 Tobacco Use Types Packs/Day Years Used Date [...] Not on file Procedures * Due to Promodity law, this organization might not be sharing negative HIV tests. Procedure Name Priority Date/Time Associated Diagnosis Comments [place] ARTHROCENTESIS ASPIR&/INJ MAJOR JT/BURSA W/O US Routine 01/22/2025 2:20 PM EDT Chronic pain of both knees XR HIPS BILATERAL 5+ VW W PELVIS Routine 07/18/2024 1:20 PM EDT Bilateral hip pain Results * Due to Promodity law, this organization might not be sharing negative HIV tests. * [place] ARTHROCENTESIS ASPIR&/INJ MAJOR JT/BURSA W/O US (01/22/2025 [...] Patient's understanding of procedure matches consent: Yes [place] Protocol: Procedure consent matches procedure scheduled: Yes [...] to obtain the completed interpretation. Workstation ID: [id number] Narrative 07/18/2024 5:31 PM EDT COMPARISON: There are no prior studies available for comparison at this time. FINDINGS AND Resulting Agency Comment [id number] Procedure Note Giselle Van MD - 07/18/2024 [...] possible to obtain thecompleted interpretation. Workstation ID: [id number] us Munira Rose NP IMG XR PROCEDURES Final Resu lt Visit [...] polyneuropathy associated with type 2 diabetes mellitus 01/30/2025 Care Teams Production Material Handler Relationship Specialty Start Date End Date Austin Nicole MD [address] [address] PCP - General Internal Medicine 06/20/24
--- OUTSIDE RECORDS SUMMARY | 2025-08-12 20:21 | XMS_ITS | Clinical Summary ---
Author Organization [facility] Address [address] [place] [address] Phone Care Team Providers Care Foundry Superintendant Name Role Phone Magali Andino MD Primary Care Provider Allergies Active Allergy Reactions Criticality Noted Date Comments Acetaminophen Hives High 01/16/2017 Medications traZODone (DESYREL) 50 MG tablet Take 50 mg by mouth nightly at bedtime. Active SENNA 8.6 mg tablet Take 2 tablets by mouth daily. Active QUEtiapine (SEROQUEL) 25 MG tablet Take 25 mg by mouth nightly at bedtime. Active atorvastatin (LIPITOR) 80 MG tablet Take 80 mg by mouth daily. Active ELIQUIS 5 mg tablet Take 5 mg by mouth 2 (two) times a day. Active levothyroxine (SYNTHROID, LEVOTHROID) 50 MCG tablet Take 50 mcg by mouth every morning. Active pregabalin (LYRICA) 150 MG capsule Take 150 mg by mouth 3 (three) times a day. Active tiZANidine (ZANAFLEX) 4 MG capsule Take 4 mg by mouth 3 (three) times a day. Active metFORMIN (GLUCOPHAGE-XR) 500 MG 24 hr tabletIndicatio ns:Type 2 diabetes mellitus with hyperglycemia, without long-term current use of insulin Take 1 tablet (500 mg total) by mouth daily with dinner. 90 tablet 1 08/06/2025 Active baclofen (LIORESAL) 10 MG tablet Take 1 tablet (10 mg total) by mouth 3 (three) times a day. 90 tablet 1 08/06/2025 Active Active Problems Problem Noted Date Diagnosed Date Rheumatoid arthritis of both hips 08/06/2025 Assessment & Plan (08/06/2025 12:40 PM EDT): Patient reports history of rheumatoid arthritis affecting bilateral hips. XR ordered to further evaluate. RF ordered to establish diagnosis as well. I have gone ahead and placed referral to rheumatology for further evaluation as well. Hypothyroidism 08/06/2025 Assessment & Plan (08/06/2025 12:39 PM EDT): History of hypothyroidism, no recent TSH on file. Repeat TSH ordered for today, continue levothyroxine 50 mcg pending repeat TFTs. Chronic back pain 08/06/2025 Assessment & Plan (08/06/2025 12:42 PM EDT): History of chronic back pain with what seems to be myelopathy in bilateral lower extremities with minimal strength in bilateral lower extremities and severe muscle spasming when tries to get to lower extremities. Very unclear history of what is occurring here. I have ordered an XR as well as referred to a medical authorization specialist, JUSTIN Barron. She will likely need an MRI but will confirm prior workup once we get old records. Type 2 diabetes mellitus wit h hyperglycemia, without long-term current use of insulin 08/06/2025 Assessment & Plan (08/06/2025 12:40 PM EDT): Report of history of DM, previously maintained on metformin but has been off of medication. Repeat A1c ordered for today, have gone ahead and sent in for metformin XR 500 mg daily but can increase to higher dose pending A1c results. She is maintained on high intensity atorvastatin 80 mg daily. Bipolar disorder, current episode mixed, moderat e 08/06/2025 Assessment & Plan (08/06/2025 12:41 PM EDT): Patient reports history of bipolar disorder, reports is on a psychotropic medication other than quetiapine but she cannot recall which one. I placed a referral into service now for ongoing psychiatric management. I have also asked patient to sign release form to obtain prior correction records as well as prior PCP records. Will continue quetiapine 25 mg nightly for now given that is the only known BPD prescription she is on, can send in for refills once we confirm other BPD medications. I have also referred to as W for assistance in managing patient's complex care needs as well as psychiatric condition. Lymphedema 08/06/2025 Assessment & Plan (08/06/2025 12:43 PM EDT): Patient reports she is maintained on torsemide although does not know the dosage. Unknown if she has had a prior TTE on file. Will confirm appropriate medication as well as prior workup would receive prior correction with PCP records. Muscle spasm 08/06/2025 Assessment & Plan (08/06/2025 12:43 PM EDT): Severe muscle spasms for which she is maintained on tizanidine 4 mg 3 times daily. She was previously on baclofen 10 mg 3 times daily with good effect as well. Reviewed that when these medication are taken together but they can cause sedation. She is aware but would like to restart the baclofen. On review of last neurology note from 01/2025, they did state tizanidine with the baclofen was safe to continue. I have sent in a new prescription for the baclofen 10 mg 3 times daily, AE reviewed. Continue the tizanidine 4 mg 3 times daily as well. Encounter to establish care 08/06/2025 Assessment & Plan (08/06/2025 12:45 PM EDT): Here establish care at [facility], prior records not yet received NAJMA provided to obtain prior correction and PCP records Screening lab work ordered Unable to address other HCM given complexity of other conditions addressed Close follow-up to continue to address care needs. Encounters Date Type Department Care Team Description 08/06/2025 11:55 AM EDT - 08/06/2025 11:59 PM EDT Hospital Encounter [facility] [address] [place] [address] Magali Andino MD Discharge Disposition: Home or Self Care 08/06/2025 11:00 AM EDT Office Visit [facility] [address] [place] [address] Magali Andino MD Encounter to establish care (Primary Dx); Rheumatoid arthritis of both hips, unspecified whether rheumatoid factor present; Hypothyroidism, unspecified type; Class 1 obesity due to excess calories without serious comorbidity with body mass index (BMI) of 30.0 to 30.9 in adult; Screening for condition; Chronic back pain, unspecified back location, unspecified back pain laterality; Type 2 diabetes mellitus with hyperglycemia, without long-term current use of insulin; Bipolar disorder, current episode mixed, moderate; Lymphedema; Muscle spasm from Last 3 Months Social History Tobacco Use Types Packs/Day Years [...] Pressure 135/66 02/23/2024 9:55 PM EDT Pulse 83 08/06/2025 10:53 AM EDT Temperature 36.3 C (97.3 F) 08/06/2025 10:53 AM EDT Respiratory Rate 20 02/23/2024 9:55 PM EDT Oxygen Saturation 93% 08/06/2025 10:53 AM EDT Inhaled Oxygen Concentration - - Weight 158.8 kg (350 lb) 02/23/2024 9:55 PM EDT Height 167.6 cm (5' 6 ) 08/06/2025 10:53 AM EDT Body Mass Index 56.49 02/23/2024 9:55 PM EDT Plan of Treatment Upcoming Encounters Date Type Department Care Team (Late st Contact Info) Description 09/16/2025 11:30 AM EST Office Visit [facility] [address] [place] [address] Magali Andino MD [address] [facility], [address] [place] [address] [email or web address] Health Maintenance Due Date Last Done Comments Adult Td,Tdap Booster 1973 BLOOD PRESSURE 1973 DEPRESSION SCREENING 1985 SMOKING Hx and SMOKELESS TOBACCO SCREENING 1986 HEPATITIS C SCREENING 1991 HIV ONE-TIME SCREENING (18-65 YEARS) 1991 PAP SMEAR 1994 MAMMOGRAM 2013 PNEUMOCOCCAL VACCINES (50+ years) (2 of 2 - PCV) 10/14/2014 10/14/2013 COLOGUARD 2018 COLONOSCOPY 2018 COLORECTAL CANCER SCREENING 2018 FIT TEST 2018 FOBT 2018 SIGMOIDOSCOPY 2018 VIRTUAL COLONOSCOPY 2018 RSV VACCINE (1 - Risk 50-74 years 1-dose series) 2023 ZOSTER VACCINES (1 of 2) 2023 INFLUENZA VACCINE (#1) 2025 , 06/11/2015, 09/09/2014 COVID-19 VACCINE ( - 2024- season) 2025 08/16/2024, 04/06/2021, 03/16/2021 DIABETIC EYE EXAM 08/06/2025 URINE MICROALBUMIN/CREATININE RATIO 08/06/2025 HEMOGLOBIN A1C 02/04/2026 08/06/2025, 04/2 12/2023, 01/14/2024, Additional history exists CREATININE LEVEL 08/06/2026 08/06/2025, , 01/14/2024, Additional history exists TSH LEVEL 08/06/2026 08/06/2025, 07/24/2023 HEPATITIS A VACCINES Aged Out No long [...] Procedure Name Priority Date/Time Associated Diagnosis Comments CBC AND DIFFERENTIAL Routine 08/06/2025 11:56 AM EDT Screening for condition COMPREHENSIVE METABOLIC PANEL Routine 08/06/2025 11:56 AM EDT Screening for condition LIPID PANEL Routine 08/06/2025 11:56 AM EDT Class 1 obesity due to excess calories without serious comorbidity with body mass index (BMI) of 30.0 to 30.9 in adult HEMOGLOBIN A1C Routine 08/06/2025 11:56 AM EDT Class 1 obesity due to excess calories without serious comorbidity with body mass index (BMI) of 30.0 to 30.9 in adult Type 2 diabetes mellitus with hyperglycemia, without long-term current use of insulin TSH Routine 08/06/2025 11:56 AM EDT Hypothyroidism, unspecified type MAGNESIUM Routine 08/06/2025 11:56 AM EDT Lymphedema RHEUMATOID FACTOR Routine 08/06/2025 11: 56 AM EDT Rheumatoid arthritis of both hips, unspecified whether rheumatoid factor present from Last 3 Months Results * (ABNORMAL) Comprehensive metabolic panel (08/06/2025 11:56 AM EDT) SODIUM 139 133 - 146 mmol/L [facility] POTASSIUM 4.3 3.3 - 5.1 mmol/L [facility] CHLORIDE 100 96 - 108 mmol/L [facility] CO2 27 21 - 35 mmol/L [facility] BUN 11 6 - 19 mg/dL [facility] CREATININE 0.70 0.5 - 1.5 mg/dL [facility] GLUCOSE 99 70 - 99 mg/dL [facility] ALBUMIN 3.8(L) 3.9 - 4.8 g/dL [facility] TOTAL PROTEIN 7.3 6.5 - 8.0 g/dL [facility] CALCIUM 9.4 8.4 - 10.3 mg/dL [facility] ALKALINE PHOSPHATASE 81 39 - 117 U/L [facility] TOTAL BILIRUBIN 0.6 0.0 - 1.2 mg/dL [facility] AST 27 0 - 37 U/L [facility] ALT 15 0 - 40 U/L [facility] GLOBULIN 3.5 1 - 4.8 g/dL [facility] EGFR 105 >59 mL/min/1.7 3m2 [facility] Comment:Estimated glomerular filtration rate calculated using the CKD-EPI refit equation. ANION GAP 16 10 - 20 mmol/L [facility] Blood 08/06/2025 11:5 6 AM EDT 08/06/2025 11:57 AM EDT us Magali Andino MD LAB BLOOD ORDERABLES Final Result Performing Organization Address City/State/[facility] Co de Phone Number [facility] [address] [place] [address] * (ABNORMAL) CBC and differential (08/06/2025 11:56 AM EDT) WBC 6.63 4.00 - 11.00 K/uL [facility] RBC 6.05(H) 4.00 - 5.20 M/uL [facility] HGB 14.8 12.0 - 16.0 g/dL [facility] HCT 48.4(H) 36.0 - 46.0 % [facility] PLT 507(H) 150 - 450 K/uL [facility] MCV 80.0 80.0 - 100.0 fL [facility] MCH 24.5(L) 27.0 - 31.0 pg [facility] MCHC 30.6(L) 32.0 - 36.0 g/dL [facility] RDW 17.3(H) 11.5 - 14.5 % [facility] MPV 10.6 8.4 - 12.0 fL [facility] NRBC 0.00 0.00 /100 WBCs [facility] ABSOLUTE NRBC 0.00 0.00 K/uL [facility] DIFF METHOD Auto [facility] NEUTS 58.2 48.0 - 76.0 % [facility] LYMPHS 26.5 18.0 - 41.0 % [facility] MONOS 11.6(H) 4.0 - 11.0 % [facility] EOS 2.7 0.0 - 5.0 % [facility] BASOS 0.5 0.0 - 1.5 % [facility] Granulocytes, immature (%) 0.5 0.0 - 0.9 % [facility] ABSOLUTE NEUTS 3.86 1.92 - 7.60 K/uL [facility] ABSOLUTE LYMPHS 1.76 0.72 - 4.10 K/uL [facility] ABSOLUTE MONOS 0.77 0.16 - 1.10 K/uL [facility] ABSOLUTE EOS 0.18 0.00 - 0.50 K/uL [facility] ABSOLUTE BASOS 0.03 0.00 - 0.15 K/uL [facility] Granulocytes, immature 0.03 0.00 - 0.09 K/uL [facility] Blood 08/06/2025 11:5 6 AM EDT 08/06/2025 11:57 AM EDT Magali Andino MD LAB BLOOD ORDERABLES Final Result [facility] [address] [place] [address] * Rheumatoid factor (08/06/2025 11:56 AM EDT) RHEUMATOID FACTOR <10.0 0.0 - 14.0 IU/ml [facility] Blood 08/06/2025 11:5 6 AM EDT 08/06/2025 11:57 AM EDT us Magali Andino MD LAB BLOOD ORDERABLES Final Result [address] [address] * TSH (08/06/2025 11:56 AM EDT) TSH 3.66 0.27 - 4.20 uIU/mL [facility] Blood 08/06/2025 11:5 6 AM EDT 08/06/2025 11:57 AM EDT Magali Andino MD LAB BLOOD ORDERABLES Final Result Performing Organization Address [facility]/ZIP Co de Phone Number [address] [address] * Magnesium (08/06/2025 11:56 AM EDT) MAGNESIUM 2.1 1.6 - 2.6 mg/dL [facility] Blood 08/06/2025 11:5 6 AM EDT 08/06/2025 11:57 AM EDT Magali Andino MD LAB BLOOD ORDERABLES Final Result Performing Organization Address [facility]/ZIP Co de Phone Number [address] [address] * Hemoglobin A1c (08/06/2025 11:56 AM EDT) HEMOGLOBIN A1C 5.8 4.3 - 5.8 % [facility] Blood 08/06/2025 11:5 6 AM EDT 08/06/2025 11:57 AM EDT us Magali Andino MD LAB BLOOD ORDERABLES Final Result Performing Organization Address City/[facility]/ZIP Co de Phone Number [address] [address] * (ABNORMAL) Lipid panel (08/06/2025 11:56 AM EDT) HDL 48 mg/dL [facility] Comment: Interpretation <40 mg/dL: Low HDL cholesterol (major risk factor for CHD) Greater than or equal to 60 mg/dL: High HDL cholesterol ( negative risk factor for CHD) HDL - cholesterol is affected by a number of factors, e.g. smoking, excerise, hormones, sex and age. CHOLESTEROL 113 0 - 240 mg/dL [facility] TRIGLYCERIDES 97 30 - 160 mg/dL [facility] LDL 46(L) 50 - 129 mg/dL [facility] Comment: LDL levels in terms of risk for coronary heart disease: <100 mg/dL: Optimal 100-129 mg/dL: Near or above optimal 130-159 mg/dL: Borderline high 160-189 mg/dL: High >190 mg/dL: Very High CARDIAC RISK RATIO 2.4(L) 3.3 - 4.4 [facility] Blood 08/06/2025 11:5 6 AM EDT 08/06/2025 11:57 AM EDT Magali Andino MD LAB BLOOD ORDERABLES Final Result Performing Organization Address City/State/[facility] Co de Phone Number [facility] [address] [place] [address] from Last 3 Months Insurance MEDIC[place] PART [place] [id number] [facility] MEDICARE PART A & B HEALTH MEDICARE PART A & [place] [address] [place], [place] [address]HEALTH MEDICARE PART A & B MEDICARE PART A & B [place] MEDICARE PART A & B Member Subscriber Plan / Payer (Ef fective 2019-Present) Name:Cass Reyes Member ID:[id number] Relation to Subscriber:Self Name:Cass Reyes Subscriber ID:[id number] Payer ID:[id number] Group ID:Not on file Type:Medicare Address: [facility] [employer] [facility] Now [facility] [address] [place] [address] [facility] Advance Directives For more information, please contact: [phone] (9AM - 5PM [facility], Sunday-Sunday) Documents on File Type Date Recorded Patient Business Performance Specialist Expl anation MOLST 02/25/2024 12:56 PM Care Teams Foundry Superintendant Relationship Specialty Start Date End Date Magali Andino MD [address] [place] [address], [address] [place] [address] [email or web address] PCP - General Family Medicine 08/06/25 Additional Source Comments The information contained in this document represents components of the legal health record. It is not the complete legal health record.[facility]
--- OUTSIDE RECORDS SUMMARY | 2025-08-12 20:21 | XMS_ITS ---
Care Plan Created on: August 12, 2025 Cass Reyes : 1975 Sex: Female Author Organization [facility] Address [address] [place] [address] Phone Care Team Providers Care Sane Nurse Name Role Phone Andreina Moore MD Primary Care Provider [phone] Active Problems Problem Noted Date Diagnosed Date [...] impact of smoking on wound No Isabella Bela RN Patient and Caregiver Understand Wound Care [...]
--- OUTSIDE RECORDS SUMMARY | 2025-08-12 20:21 | XMS_ITS | Clinical Summary ---
Author Organization [facility] Address [address] [place] [address] Phone Care Team Providers Care Black Ash Burner Operator Name Role Phone Andreina Moore MD Primary Care Provider [phone] Allergies Active Allergy Reactions Criticality Noted Date [...] diabetes mellitus wit h other skin complications [place] [place] [facility] [place]) 04/14/2025 Pressure injury of right thi gh, stage 2 ([facility] [place] [facility] [place] 04/14/2025 Pressure ulcer of left butto ck, stage 2 ([facility] [place], [facility] [place] 04/14/2025 Dermatitis associated with moisture 04/14/2025 Surgical History Surgery Date Site/Laterality Comments OTHER SURGICAL HISTORY PROCEDURE: ANALGESIA FOR LABOR/; COMMENT: x 4 CHOLECYSTECTOMY PROCEDURE: HISTORICAL CHOLECYSTECTOMY NECK SURGERY PROCEDURE: HISTORICAL NECK SURGERY TUBAL LIGATION PROCEDURE: HISTORICAL TUBAL LIGATION FOOT SURGERY 11/2016 Right PROCEDURE: HISTORICAL FOOT SURGERY Medical History Medical History Date Comments Fibromyalgia DX:Fibromyalgia COPD (chronic obstructive pu lmonary disease) ([facility] [place] [facility] [place]) DX:COPD (chronic o bstructive pulmonary disease) ([facility]) Lymphedema DX:Lymphedema Osteoarthritis DX:Osteoarthriti s Hypothyroid DX:Hypothyroid Anxiety DX:Anxiety Depression 06/02/2015 DX:Depression Psychosis ([facility] [place], [facility]) 06/02/2015 DX:Psychosis ([facility]) Polysubstance abuse ([facility] [place], [facility]) 06/02/2015 DX:Polysubstance abuse ([facility]) Keloid 06/02/2015 DX:Keloid 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 DX:Latent tuberculosis by blood test; COMMENT: T-spot positive Morbid obesity ([facility] [place], [facility] [place]) 06/02/2015 DX:Morbid obesity ([facility]) CKD (chronic kidney disease) stage 3, GFR 30-59 ml/min ([facility] [place], [facility]) 06/02/2015 DX:CKD (chronic kidney disea se) stage 3, GFR 30-59 ml/min ([facility]) Type 2 diabetes, controlled, with renal manifestation ([facility], [facility]) DX:Type 2 diabetes, controll ed, with renal manifestation ([facility]) Esophageal reflux DX:Esophageal reflux Cocaine abuse in remission ( [facility], [facility] [place]) DX:Cocaine abuse in remissio n ([facility]) Hx of syphilis DX:Hx of syphili s; COMMENT: was treated at the age of 16. Family History Medical History Relation Name Comments Heart attack Aunt and 2 cousins w ith [place] Cataracts Maternal Grandfather Glaucoma Maternal Grandmother Other [...] Last Done Comments Breast Cancer Screening 1973 Colorectal Cancer Screening: Colonoscopy 1973 Diabetes: Annual Foot Exam 1983 Diabetes: [...] (2 of 2 - PCV) 10/14/2014 10/14/2013 Diabetes: Annual Urine Albumin-Creatinine Ratio (uACR) 11/20/2023 Diabetes: Blood Sugar Control Test (HGBA1C) 11/20/2023 HIV Screening 11/20/2023 Hepatitis C Screening 11/20/2023 Medicare Annual Wellness Visit 11/20/2023 Social Influencers of Health Screening 11/20/2023 RSV Immunization Adult Patients (1 - Risk 50-74 years 1-dose series) 2023 COVID-19 Vaccine (2 - Pfizer risk series) [...] week 4 Care Plan Impaired Tissue No Isabella Beal RN Wound volume breakdown reduced by X% by week 8 Care Plan Impaired Tissue No Isabella Beal RN Wound volume breakdown reduced by X% by week 12 Care Plan Impaired Tissue No Isabella Beal RN Quit using tobacco (cigarettes, smokeless, etc) [...] omised skin integrity. No Isabella Beal RN Additional Health Concerns Active Problems Noted Date Diagnosed Date Impaired Tissue 04/14/2025 Education needed on impact of smoking on wound 0 04/14/2025 Education needed related to ulceration/compromised skin integrity. 04/14/2025 Insurance [facility] Member Subscriber Plan / Payer (Ef fective 2020-Present) Name:ALEX REYES Relation to Subscriber:Spouse Name:BARBARAALEX MARSH Date of :1973 (Home) Address: [address] [place] [address] Payer ID:[id number] Group ID:[id number] Type:Not on file Address: [address] [place] [id number] [facility] MEDICAID [facility] MEDICARE Member Subscriber Plan / Payer (Ef fective 2020-Present) Name:ALEX REYES Relation to Subscriber:Self Name:Alex Reyes Payer ID:[id number] Group ID:[id number] Type:Not on file Address: [place] [address] [place] [id number] Advance Directives Documents on File Type Date Recorded 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
== END 2025-08-12 15:14 | disposition home or self-care (01) ==
LOC: HO.HOS 14:08
PROVIDERS: PCP Internal Medicine; Visit Provider Physician Assistant
DX: E11.9 Type 2 diabetes mellitus without complications (principal); M17.0 Bilateral primary osteoarthritis of knee
CPT/HCPCS: 20610; 99213

== ENCOUNTER → 2025-08-12 14:12 | Outpatient (BNV) | payer MEDICARE, MEDICAID, SELFPAY | PROVIDERS: Visit Provider Radiology Diagnostic Radiology | DX: M17.0 Bilateral primary osteoarthritis of knee (principal) | CPT/HCPCS: 73562 ==